=== PATIENT | female | born 1960 | race Caucasian/White ===

== ENCOUNTER → 2019-04-30 11:58 | Outpatient (CLI) | payer BC, SELFPAY ==
[2019-04-30 15:34] LABS: Hematocrit 52.6 % (37-47); Hemoglobin 17.3 g/dl (12.0-15.0); Mean Corp Hgb Conc 32.9 g/gl (32-36); Mean Corpuscular Hgb 29.2 pg (27.0-32.0); Mean Corpuscular Volume 88.9 fL (81-99); Mean Platelet Vol. 10.5 fl (6.2-12.0); Platelet Count 501 K/mm3 (150-450); RBC Distribution Width CV 13.9 % (11.6-14.6); Red Blood Count 5.92 M/mm3 (4.2-5.4); White Blood Count 12.6 K/mm3 (4.4-11.0)
[2019-04-30 15:45] LABS: Anion Gap 9 (5-15); BUN 18 mg/dL (7-18); BUN/Creat Ratio 18.8 RATIO (10-20); Calcium,Total 9.4 mg/dL (8.5-10.1); Chloride 100 mmol/L (98-107); Cholesterol 237 mg/dL (200); Creatinine, Serum 0.96 mg/dL (0.55-1.02); EST Glomerular Filtration Rate 63 mL/min (>60); Est Glom Filt Rate - Afr Amer 77 mL/min (>60); Glucose 87 mg/dL (74-106); High Density Lipoprotein 44 mg/dL; Potassium 3.7 mmol/L (3.5-5.1); Sodium Level 139 mmol/L (136-145); Triglycerides 191 mg/dL; Very Low Density Lipoprotein 38 mg/dL (5-40)
[2019-04-30 15:49] LABS: Scan Indicated on CBC? Y/N NO
[2019-04-30 15:55] LABS: Vitamin D,25 Hydroxy 18.6 ng/mL (29.95-100.01)
== END ==
PROVIDERS: Family Provider Family Medicine; PCP Family Medicine; Referring Provider Family Medicine; Visit Provider Family Medicine
DX: E55.9 Vitamin D deficiency, unspecified (principal); I10 Essential (primary) hypertension; F32.9 Major depressive disorder, single episode, unspecified
CPT/HCPCS: 36415; 80048; 80061; 82306; 85027

== ENCOUNTER → 2020-08-21 12:48 | Outpatient (CLI) | payer BC, SELFPAY ==
[2020-08-21 15:30] LABS: Vitamin D,25 Hydroxy 45.2 ng/mL
[2020-08-21 15:40] LABS: AST(SGOT) 41 U/L (15-37); Alanine Aminotransfer ALT/SGPT 80 U/L (13-56); Albumin, Serum 3.8 g/dL (3.2-5.0); Alkaline Phosphatase 90 U/L (45-117); Anion Gap 4 (5-15); BUN 28 mg/dL (7-18); BUN/Creat Ratio 30.1 RATIO (10-20); Calcium,Total 9.4 mg/dL (8.5-10.1); Chloride 100 mmol/L (98-107); Cholesterol 191 mg/dL (200); Creatinine, Serum 0.93 mg/dL (0.55-1.02); EST Glomerular Filtration Rate 65 mL/min (>60); Est Glom Filt Rate - Afr Amer 79 mL/min (>60); Glucose 84 mg/dL (74-106); High Density Lipoprotein 50 mg/dL; Potassium 4.1 mmol/L (3.5-5.1); Protein, Total 7.8 g/dL (6.4-8.2); Sodium Level 135 mmol/L (136-145); Thyroid Stim Hormone (TSH) 1.76 uIU/mL (0.358-3.74); Triglycerides 114 mg/dL; Very Low Density Lipoprotein 23 mg/dL (5-40)
== END ==
PROVIDERS: PCP Family Medicine; Referring Provider Family Medicine; Visit Provider Family Medicine
DX: E78.2 Mixed hyperlipidemia (principal); R63.4 Abnormal weight loss; E55.9 Vitamin D deficiency, unspecified
CPT/HCPCS: 36415; 80053; 80061; 82306; 84443

== ENCOUNTER 2022-01-23 14:18 | Observation (INO) | payer MEDICAID, SELFPAY ==
[2022-01-23] VITALS (7 sets, daily range): BP systolic 123–152; BP diastolic 66–98; PULSE 61–115; RESP 16–18; TEMP 36.3–36.8; O2SAT 96–100; BMI 29.2; BMI 28.6
--- NOTE | 2022-01-23 14:29 | EKG12_ITS ---
Test Reason : GI BLEED Blood Pressure : / mmHG Vent. Rate : 078 BPM Atrial Rate : 078 BPM P-R Int : 128 ms QRS Dur : 078 ms QT Int : 382 ms P-R-T Axes : 046 046 028 degrees QTc Int : 435 ms Normal sinus rhythm Normal ECG Confirmed by JARETT HANNAH, FERMIN ([id number]), editorial clerk ILA BEASLEY ([id number]) on 01/25/2022 11:05:41 AM Referred By: Confirmed By:FERMIN DENSON MD
--- NOTE | 2022-01-23 14:30 | ED.VIS.GI ---
HPI HPI - GI History of Present Illness Chief Complaint: GI Bleed Detail of Chief Complaint: Blood clots per rectum Informant: patient Abdominal Pain/Flank Pain Onset: Yesterday Context: Sudden Onset Timing: Intermittent Quality: - (No abdominal pain) Location: - (Not applicable) Current Severity: Not applicable Worsened by: Nothing Relieved by: Nothing Nausea/Vomiting/Emesis GI Symptom: Negative for Nausea and Vomiting Diarrhea/Melena/Hematochezia GI Symptom: Positive for Melena and Hematochezia Onset: Yesterday Stool Quality: Positive for Black, Maroon and BRB per rectum Associated Symptoms Associated Symptoms: Negative for Dysuria, Frequency and Hematuria LMP: Postmenopausal Narrative Narrative: Clots per rectum and started last evening. Now it is black to maroon in color. She is not on an anticoagulant. She denies bruising easily. Denies blood in her urine. Denies bleeding of her gums. Patient denies history of peptic ulcers. Patient has never had a colonoscopy.Patient is a 61-year-old woman who takes a baby aspirin a day presents because of blood clots per rectum. She denies abdominal pain. Denies nausea or vomiting. She denies history of peptic ulcer disease. She has never had a colonoscopy. She denies orthostatic symptoms. She states that her heart is pounding fast. Prior similar symptoms: No Recent Illness/Hospitalization: No PFSH PFSH Medical History (Updated 01/23/22 @ 15:[address] Cristi Bravo MD) HTN (hypertension) Allergy/AdvReac Type Severity Reaction Status Date / Time No Known Allergies Allergy Verified 01/23/22 14:20 Social History (Updated 01/23/22 @ 14:[address] Cristi Bravo MD) household members: none Smoking Status: Current every day smoker tobacco type: cigarettes substance use type: does not use ROS ROS ED Constitutional Constitutional ED: Denies chills, fever(s), subjective, sweats or weight loss ENT ENT ED: Denies ear pain, rhinorrhea or sore throat Cardiovascular Cardiovascular: Denies chest pain, orthopnea, palpitations or racing heartbeat Respiratory/Chest Respiratory/Chest: Denies cough, dyspnea, dyspnea on exertion or orthopnea Gastrointestinal Gastrointestinal: Reports melena; Denies abdominal pain, constipation, diarrhea, nausea or vomiting Genitourinary Genitourinary ED: Denies dysuria, hematuria or urinary frequency Musculoskeletal Musculoskeletal: Denies arthralgias, back pain, myalgias or neck pain Integumentary Denies rash Neurologic Neurologic: Denies headache(s), paresthesias or weakness Endocrine Endocrinology: Denies polydipsia, polyphagia or polyuria Hematologic/Lymphatic Hematologic/Lymphatic: Denies anemia, easy bleeding or easy bruising EXAM Physical Exam Const Vital Signs: 01/23/22 14:19 01/23/22 14:29 Temperature 97.4 F L 97.4 F L Temperature Source Temporal Temporal Pulse Rate 115 H 115 H Respiratory Rate 16 16 Blood Pressure 152/98 H 152/98 H Blood Pressure Mean 116 116 Pulse Ox 100 100 Oxygen Delivery Method Room Air Room Air Positive well nourished and well developed; Negative for obese, cachectic, contractures or unkempt General Appearance ED: well developed, NAD and pallor; Negative for unkempt, cachectic or contractures Nutritional Appearance: Negative for cachectic or obese HEENT Reports moist mucous membranes normocephalic and atraumatic Eyes PERRL and EOMs intact bilaterally General Eye ED: Yes pale conjunctiva; Negative for scleral icterus Neck no lymphadenopathy, supple and no JVD Resp normal respiratory effort and clear to auscultation bilaterally Cardio regular rhythm, S1 normal heart sound, S2 normal heart sound and no murmurs Rate: tachycardic GI non-tender, non-distended and no masses GI Narrative: There is no fissures, fistulas or hemorrhoids noted on rectal exam. Patient has maroon to black-colored stool. Auscultation: normoactive bowel sounds Palpation: soft Back/Spine no CVA tenderness Cervical Spine: Negative for cervical spine tenderness Thoracic Spine / Upper Back: Negative for thoracic spinal tenderness Lumbar Spine / Lower Back: Negative for lumbar spinal tenderness Extremity full ROM General Extremety ED: Negative for edema or tenderness General Extremity: Negative for edema Neuro CN's II-XII intact bilaterally and moves all extremities Sensorium / Orientation: alert, oriented to person, oriented to place and oriented to time Psych mental status grossly normal and thought process normal Appearance: Negative for unkempt Skin no wounds General Skin Exam: pallor; Negative for jaundice Lesions: no lesions Rashes: no rashes MDM MDM MDM Narrative Medical decision making narrative: Patient has a GI bleed. Suspect this is upper. Will treat with Protonix. Appropriate blood work was ordered including type and screen. Patient will require admission to the hospital. Lab Data Attestation: I reviewed the patient's lab results. Lab results narrative: H&H is within normal limits. Hemoglobin and hematocrit are lower than baseline by 3 to 4 g. We will compare to prior. BUN to creatinine ratio is elevated due to the GI bleed. Coags are. Patient's white count is elevated. This is nonspecific. She has had elevated white counts on all prior documented CBCs. Lactate is normal. Labs: Laboratory Results - last 24 hr 01/23/22 01/23/22 01/23/22 14:30 14:30 14:30 WBC 17.6 H RBC 4.77 Hgb 13.5 Hct 42.3 MCV 88.7 MCH 28.3 MCHC 31.9 L RDW Std Deviation 43.8 RDW Coeff of Yfn 13.5 Plt Count 683 H MPV 10.2 Immature Gran % (Auto) 0.700 Neut % (Auto) 69.9 Lymph % (Auto) 21.2 [place] % (Auto) 6.7 Eos % (Auto) 1.0 Baso % (Auto) 0.5 Absolute Neuts (auto) 12.3 H Absolute Lymphs (auto) 3.73 Nucleated RBC % 0 PT 13.6 INR 1.1 APTT 32.4 Sodium 135 L Potassium 4.2 Chloride 104 Carbon Dioxide 24.0 Anion Gap 7 BUN 51 H Creatinine 1.03 H Estim Creat Clear Calc 40.68 Est GFR (MDRD) Af Amer 70 Est GFR (MDRD) Non-Af 58 L BUN/Creatinine Ratio 49.5 H Glucose 113 H Lactic Acid Calcium 9.0 Total Bilirubin 0.60 AST 40 H ALT 26 Alkaline Phosphatase 72 Total Protein 7.0 Albumin 3.4 Globulin 3.6 Albumin/Globulin Ratio 0.9 Blood Type A1 Antigen Typing Rho(D) Type Antibody Screen 01/23/22 01/23/22 14:30 14:40 WBC RBC Hgb Hct MCV MCH MCHC RDW Std Deviation RDW Coeff of Yfn Plt Count MPV Immature Gran % (Auto) Neut % (Auto) Lymph % (Auto) [place] % (Auto) Eos % (Auto) Baso % (Auto) Absolute Neuts (auto) Absolute Lymphs (auto) Nucleated RBC % PT INR APTT Sodium Potassium Chloride Carbon Dioxide Anion Gap BUN Creatinine Estim Creat Clear Calc Est GFR (MDRD) Af Amer Est GFR (MDRD) Non-Af BUN/Creatinine Ratio Glucose Lactic Acid 1.4 Calcium Total Bilirubin AST ALT Alkaline Phosphatase Total Protein Albumin Globulin Albumin/Globulin Ratio Blood Type Cancelled A1 Antigen Typing Cancelled Rho(D) Type Cancelled Antibody Screen Cancelled EKG Initial EKG: Attestation: I personally reviewed and interpreted this EKG as follows: Interpretation: Sinus Rhythm (Sinus rhythm with ventricular rate of 78. TN interval is 128 ms. QRS duration 78 ms. QT duration 382 ms. [place] is normal. The EKG is normal.) Discharge Plan Dx/Rx/DC Orders Clinical Impression: Acute GI bleeding, Blood loss Disposition Disposition: Acute Care Hospital [facility]
[2022-01-23 14:42] LABS: Absolute Lymphocyte Count 3.73 X10^3/uL (0.83-4.51); Absolute Neutrophil Count 12.3 X10^3/uL (2.0-7.7); Basophil# 0.09 X10^3/uL; Basophil% 0.5 % (0-1); Eosinophil# 0.17 X10^3/uL; Hematocrit 42.3 % (37-47); Hemoglobin 13.5 g/dL (12.0-15.0); Lymphocyte # 3.73 X10^3/ul (0.83-4.51); Lymphocyte % 21.2 % (19-41); Mean Corp Hgb Conc 31.9 g/dL (32-36); Mean Corpuscular Hgb 28.3 pg (27.0-32.0); Mean Corpuscular Volume 88.7 fL (81-99); Mean Platelet Vol. 10.2 fl (6.2-12.0); Monocyte# 1.18 X10^3/uL; Monocyte% 6.7 % (0-10); NRBC Flagged by Analyzer 0 % (0-5); Neutrophil # 12.29 X10^3/uL (2.7-7.7); Neutrophil % 69.9 % (47-70); Platelet Count 683 K/mm3 (150-450); RBC Distribution Width CV 13.5 % (11.6-14.6); RBC Distribution Width SD 43.8 fl (35.1-43.9); Red Blood Count 4.77 M/mm3 (4.2-5.4); White Blood Count 17.6 K/mm3 (4.4-11.0)
[2022-01-23 14:55] LABS: International Normalized Ratio 1.1; Partial Thromboplast Time 32.4 Seconds (24.1-36.2); Prothrombin Time (Protime)PT. 13.6 SECONDS (11.7-14.9)
[2022-01-23 15:04] LABS: ALB/GLOB Ratio 0.9 RATIO (0.9-2.4); AST(SGOT) 40 U/L (15-37); Alanine Aminotransfer ALT/SGPT 26 U/L (13-56); Albumin, Serum 3.4 g/dL (3.2-5.0); Alkaline Phosphatase 72 U/L (45-117); Anion Gap 7 (5-15); BUN 51 mg/dL (7-18); BUN/Creat Ratio 49.5 RATIO (10-20); Chloride 104 mmol/L (98-107); Creatinine, Serum 1.03 mg/dL (0.55-1.02); EST Glomerular Filtration Rate 58 mL/min (>60); Est Glom Filt Rate - Afr Amer 70 mL/min (>60); Estimated Creatinine Clearance 40.68 ml/min; Globulin 3.6 g/dL (2.2-4.2); Glucose 113 mg/dL (74-106); Potassium 4.2 mmol/L (3.5-5.1); Sodium Level 135 mmol/L (136-145)
[2022-01-23 15:17] LABS: Lactic Acid 1.4 mmol/L (0.4-1.9)
[2022-01-23 15:37] LABS: Magnesium 1.7 mg/dL (1.6-2.6); Phosphorus 3.4 mg/dL (2.5-4.9)
--- NOTE | 2022-01-23 15:43 | PCM.HP.STD ---
[facility] - General General Date of Admission: 01/23/22 Date of Service: 01/23/22 Chief Complaint: Black stool 5 times. Mild lethargy. HPI Narrative JAY CALHOUN, is a 61 F with history of chronic back pain and degenerative arthritis came to ED for 5 episodes of black stool started last night. Her first bowel movement was large amount of black tar-like and then subsequent 4 others were small. She is feeling mild lethargic, slow but denies nausea, vomiting, dizziness or vertigo. She states that she feels her heartbeat, palpitation. In ED, she was tachycardic heart rate 115/min, BP 152/98 no tachypnea or hypoxia. She was reselected. Heart rate improved to 79/min. Denies history of coronary artery disease, NC, dysrhythmia, CHF or valvular heart disease or stroke. About 5 years ago, she felt mild weakness and giving out sensation of right leg and was started on some pill which she is not aware. She is taking baby aspirin for primary prevention. She has been taking occasional Aleve but since starting new job couple days ago she is taking Aleve 1 to 2 tablets daily. Labs done in the ER shows increase in BUN 51 and creatinine 1.03 from previous 28/0.93 on August 2020. Abnormal labs mentioning assessment and plan. [facility] Medical History HTN (hypertension) Allergy/AdvReac Type Severity Reaction Status Date / Time No Known Allergies Allergy Verified 01/23/22 14:20 Social History household members: none Smoking Status: Current every day smoker tobacco type: cigarettes substance use type: does not use ROS ROS Narrative Constitutional: Reports fatigue and weakness. Back pain HEENT: Reports systems reviewed and no addt'l complaints, except as documented Respiratory/Chest: No shortness of breath at rest or with exertion. Cardiovascular system:Denies chest pain, pressure or tightness. Mild sensation of racing of heart. peripheral arterial disease. She is not on aspirin for this reason but was started on some pill which she does not know. No home medication listed. Gastrointestinal: No abdominal pain or discomfort. Rest as mentioned in HPI Genitourinary: Denies burning urination or new urinary tract symptoms Musculoskeletal/back pain: Reports joint pain and limited range of motion at hip, knees and lumbar back pain Neurologic: Denies seizure-like activity skin: No ulcer. No rash Endocrinology: Reports systems reviewed and no addt'l complaints, except as documented Hematologic/Lymphatic: Reports systems reviewed and no addt'l complaints, except as documented Rest 14 ROS are negative except as mentioned in HPI Vital Signs Vital Signs Vital Signs: 01/23/22 14:19 01/23/22 14:29 01/23/22 15:24 Temperature 97.4 F L 97.4 F L 97.8 F Temperature Source Temporal Temporal Temporal Pulse Rate 115 H 115 H 79 Respiratory Rate 16 16 18 Blood Pressure 152/98 H 152/98 H 151/80 H Blood Pressure Mean 116 116 103 Pulse Ox 100 100 96 Oxygen Delivery Method Room Air Room Air Room Air Weight Weight: 150 lb Body Mass Index (BMI) 29.2 Physical Exam Narrative General: Mild lethargy oriented x3, Cooperative HEENT: Atraumatic, PERRLA, EOMI, Normocephalic Oral: Oral mucosa dry. No Gingival or Mucosal Lesions/ Ulcerations Neck: Supple, No JVD, Negative Carotid Bruits Lungs: Air entry diminished in bilateral lung bases. No crepitation/rhonchi Cardiovascular: Regular rate, Regular Rhythm, Normal S1, Normal S2, No murmurs. Popliteal, PT and DP are equal and symmetric on both lower extremities Abdomen: Bowel Sounds Present, Soft, Non Tender, Non-Distended : No renal angle tenderness. No suprapubic tenderness. Extremities: No edema, Capillary Refill Less than 3 Seconds Skin: No rashes, No breakdown Musculoskeletal/spine: Mild tenderness in the lumbar spine. No tenderness to Palpation of Joints or Extremities. ROM full. Neurological: Cranial nerves II-XII grossly intact, DTR 2+/4 and Symmetrical, Neuro grossly intact Psych/Mental Status: Flat affect Results Lab / Micro Data Result Diagrams: 01/23/22 14:30 01/23/22 14:30 Labs: Laboratory Results - last 24 hr 01/23/22 14:30: WBC 17.6 H, RBC 4.77, Hgb 13.5, Hct 42.3, MCV 88.7, MCH 28.3, MCHC 31.9 L, RDW Std Deviation 43.8, RDW Coeff of Yfn 13.5, Plt Count 683 H, MPV 10.2, Immature Gran % (Auto) 0.700, Neut % (Auto) 69.9, Lymph % (Auto) 21.2, [place] % (Auto) 6.7, Eos % (Auto) 1.0, Baso % (Auto) 0.5, Absolute Neuts (auto) 12.3 H, Absolute Lymphs (auto) 3.73, Nucleated RBC % 0 01/23/22 14:30: PT 13.6, INR 1.1, APTT 32.4 01/23/22 14:30: Sodium 135 L, Potassium 4.2, Chloride 104, Carbon Dioxide 24.0, Anion Gap 7, BUN 51 H, Creatinine 1.03 H, Estim Creat Clear Calc 40.68, Est GFR (MDRD) Af Amer 70, Est GFR (MDRD) Non-Af 58 L, BUN/Creatinine Ratio 49.5 H, Glucose 113 H, Calcium 9.0, Total Bilirubin 0.60, AST 40 H, ALT 26, Alkaline Phosphatase 72, Total Protein 7.0, Albumin 3.4, Globulin 3.6, Albumin/Globulin Ratio 0.9 01/23/22 14:30: Blood Type Cancelled, A1 Antigen Typing Cancelled, Rho(D) Type Cancelled, Antibody Screen Cancelled 01/23/22 14:30: Phosphorus 3.4, Magnesium 1.7 01/23/22 14:40: Lactic Acid 1.4 Assessment & Plan Assessment/Plan (1) Acute GI bleeding: PLAN: 1. Acute upper GI bleed most likely from NSAID: Patient is being admitted in PCU. Volume resuscitation. BP 151/80. Tachycardia resolved. Continue IV fluid normal saline. Type and crossmatch ordered by ER physician. I called Dr. Garrett discussed the clinical aspect and requested consult for EGD. IV Protonix 40 mg IV twice daily. Discontinue Aleve and hold baby aspirin. 2. Acute anemia mostly due to to blood loss/upper GI bleed: Her previous hemoglobin in April 2019 17.3 g/dL which is high. She denies history of COPD or any cancer or polycythemia vera. It was 16.5 grams per deciliter in October 2016. Monitor H&H in the evening. CBC daily. Patient not being admitted for 3. Hypertension: There is no medication or patient home med list. I think she not taking any medication. Monitor BP and start antihypertensive medication if BP is persistently high. IV hydralazine 10 mg every 6 hourly.. Blood pressure more than 180 mmHg 4. Peripheral arterial disease: Patient had noninvasive lower extremity arterial study ordered by Dr. Darling in March 2016. Reported as triphasic waveform at the ankle with resting CARLOS bilaterally normal. However following exercise left ankle pressure diminished failed to return to baseline even after 9 minutes post exercise. This is suggestive of left lower extremity arterial occlusive disease although the level of disease cannot be ascertained. Advised to follow-up with vascular surgeon as an outpatient. VTE prophylaxis: Pharmacological prophylaxis]. Bilateral SCDs. Living will/advanced directive/end of life care: Patient does not have living will or advanced directive. She did not have any designated power of corporate attorney for health but states her brother is next to kin. After discussion of benefits/risks procedures involved with full code, DNR CC arrest and DNR CC, the patient opted for full code. Patient does want artificial life support including intubation, tube feed, ventilator and/chest compression, central venous catheter, vasopressor and DC shock if needed Total time spent in [id number] encounter in discussion of advanced directive 16 minutes. Charges/Coding Visit Charges Inpatient E&M: 61717 Init Hosp L3 Procedures Hospitalists Procedures: 96044 Advncd Care Plan 30 Min
[2022-01-23] MEDS: 0.9% Normal Saline 1,000 ML 100 ML IV (16:11)
--- NOTE | 2022-01-23 23:00 | CON.PCM.GI_ITS ---
HPI Consult Data Date of Consult: 01/24/22 HPI Narrative HPI Narrative: JAY CALHOUN, is a 61 F who presents to the ED with melena and passing clots per rectum. She has never had a colonoscopy. She complains of 5 episodes of black stool started last night. Her first bowel movement was large amount of black tar-like and then subsequent 4 others were small. She denied any presyncope or syncope. She does take an aspirin on daily basis and takes occasional Aleve for arthritis pain. She has no history of CAD. She is never had a heart attack or stroke. She is not taking any blood thinners. Upon arrival she was tachycardic and hypertensive. He globin was noted to be 11.2 which is down from previous 15.2 and her BUN/creatinine ratio was weighted 51-1.03. I was consulted for management of GI bleed. All other 16 review of systems are negative except as pertinent positive mentioned HPI PFSH Medical History HTN (hypertension) Home Medications aspirin 81 mg PO/SL DAILY 01/23/22 [History Last Taken 01/23/22] atorvastatin 40 mg PO QHS 01/23/22 [History Last Taken 01/21/22] metoprolol tartrate 50 mg PO BID 01/23/22 [History Last Taken 01/22/22] naproxen sodium [Aleve] 220 mg PO Q8H PRN 01/23/22 [History Last Taken Unknown] Allergy/AdvReac Type Severity Reaction Status Date / Time No Known Allergies Allergy Verified 01/23/22 14:20 Social History (Updated 01/23/22 @ 16:07 by Leanna Abel) household members: none housing: house Smoking Status: Heavy Smoker (>10/day) substance use type: does not use ROS Gastrointestinal Gastrointestinal: Reports melena Physical Exam Const alert General Appearance: cooperative Orientation / Consciousness: oriented to person HEENT hearing grossly normal bilaterally Head and Scalp: normal to inspection Face and Sinus: face symmetric Nose: external nose normal Mouth: oral and palatal mucosa normal Eyes conjunctivae normal General Eye: normal appearance of both eyes Neck full ROM General: normal visual inspection Lymph Lymphatic: no lymphadenopathy noted Chest inspection of chest normal and palpation of chest normal Chest: symmetrical chest wall rise Resp normal respiratory effort Effort and Inspection: able to speak in complete sentences Cardio regular rate GI non-distended Percussion: normal to percussion Rectal Exam: deferred Neuro Speech: speech normal Gait (Neuro): normal gait Lab / Micro Data Result Diagrams: 01/24/22 05:29 01/24/22 05:29 Labs: Laboratory Results - last 24 hr 01/23/22 14:30: WBC 17.6 H, RBC 4.77, Hgb 13.5, Hct 42.3, MCV 88.7, MCH 28.3, MCHC 31.9 L, RDW Std Deviation 43.8, RDW Coeff of Yfn 13.5, Plt Count 683 H, MPV 10.2, Immature Gran % (Auto) 0.700, Neut % (Auto) 69.9, Lymph % (Auto) 21.2, [place] % (Auto) 6.7, Eos % (Auto) 1.0, Baso % (Auto) 0.5, Absolute Neuts (auto) 12.3 H, Absolute Lymphs (auto) 3.73, Nucleated RBC % 0 01/23/22 14:30: PT 13.6, INR 1.1, APTT 32.4 01/23/22 14:30: Sodium 135 L, Potassium 4.2, Chloride 104, Carbon Dioxide 24.0, Anion Gap 7, BUN 51 H, Creatinine 1.03 H, Estim Creat Clear Calc 40.68, Est GFR (MDRD) Af Amer 70, Est GFR (MDRD) Non-Af 58 L, BUN/Creatinine Ratio 49.5 H, Glucose 113 H, Calcium 9.0, Total Bilirubin 0.60, AST 40 H, ALT 26, Alkaline Phosphatase 72, Total Protein 7.0, Albumin 3.4, Globulin 3.6, Albumin/Globulin Ratio 0.9 01/23/22 14:30: Blood Type Cancelled, A1 Antigen Typing Cancelled, Rho(D) Type Cancelled, Antibody Screen Cancelled 01/23/22 14:30: Phosphorus 3.4, Magnesium 1.7 01/23/22 14:40: Lactic Acid 1.4 01/23/22 14:58: Blood Type A POSITIVE, Antibody Screen NEGATIVE 01/23/22 20:19: Hgb 11.5 L, Hct 34.6 L 01/24/22 05:29: WBC 11.2 H, RBC 3.83 L, Hgb 11.2 L, Hct 34.1 L, MCV 89.0, MCH 29.2, MCHC 32.8, RDW Std Deviation 43.2, RDW Coeff of Yfn 13.4, Plt Count 552 H, MPV 10.3, Immature Gran % (Auto) 0.600, Neut % (Auto) 62.6, Lymph % (Auto) 28.3, [place] % (Auto) 6.4, Eos % (Auto) 1.6, Baso % (Auto) 0.5, Absolute Neuts (auto) 7.0, Absolute Lymphs (auto) 3.16, Nucleated RBC % 0 01/24/22 05:29: Sodium 140, Potassium 3.6, Chloride 111 H, Carbon Dioxide 26.0, Anion Gap 3 L, BUN 33 H, Creatinine 0.78, Estim Creat Clear Calc 53.72, Est GFR (MDRD) Af Amer 95, Est GFR (MDRD) Non-Af 79, BUN/Creatinine Ratio 42.0 H, Glucose 83, Calcium 8.4 L Assessment & Plan Assessment/Plan (1) Acute GI bleeding: PLAN: The differential diagnosis for acute upper GI bleed in the setting of NSAIDs is peptic ulcer disease in the stomach or small bowel. With a elevated BUN/creatinine ratio greater than 2061 the likelihood of upper GI bleed in the setting of reactive thrombocytosis is about 95%. She should undergo an upper endoscopy evaluate her upper GI tract. She should also undergo screening colonoscopy. She was explained alternatives, risk, benefits including not withstanding bleeding, infection, sepsis, perforation, need for emergent surgery and . She will have an ASA of 1. (2) Leukocytosis: PLAN: Leukocytosis possibly reactive to acute GI bleed. However she s hould get an CT scan abdomen pelvis to make sure there is no sign of diverticular disease or ischemic colitis as it can have a similar presentation and you can have an elevated BUN/creatinine ratio if there is ischemia with GI blood loss on the right side of the colon due to the ADH receptors of the right side of the colon. (3) Thrombocytosis: PLAN: Suspect that this is reactive. Recommend to follow with further CBCs. If this continues to be elevated this would be another reason to encourage smoking cessation for the patient as it can increase her risk of thromboembolic event. Charges/Coding Visit Charges Inpatient E&M: 90382 Init Hosp L3
[2022-01-24] VITALS (9 sets, daily range): BP systolic 84–132; BP diastolic 45–68; PULSE 61–75; RESP 16–20; TEMP 36–36.8; O2SAT 95–98; BMI 28.6
[2022-01-24 01:28] LABS: Hematocrit 34.6 % (37-47); Hemoglobin 11.5 g/dL (12.0-15.0)
[2022-01-24] MEDS: 0.9% Normal Saline 1,000 ML 100 ML IV (03:09)
[2022-01-24 06:27] LABS: Absolute Lymphocyte Count 3.16 X10^3/uL (0.83-4.51); Basophil# 0.06 X10^3/uL; Basophil% 0.5 % (0-1); Eosinophil# 0.18 X10^3/uL; Eosinophils% 1.6 % (0-5); Hematocrit 34.1 % (37-47); Hemoglobin 11.2 g/dL (12.0-15.0); Lymphocyte # 3.16 X10^3/ul (0.83-4.51); Lymphocyte % 28.3 % (19-41); Mean Corp Hgb Conc 32.8 g/dL (32-36); Mean Corpuscular Hgb 29.2 pg (27.0-32.0); Mean Platelet Vol. 10.3 fl (6.2-12.0); Monocyte# 0.71 X10^3/uL; Monocyte% 6.4 % (0-10); NRBC Flagged by Analyzer 0 % (0-5); Neutrophil # 6.99 X10^3/uL (2.7-7.7); Neutrophil % 62.6 % (47-70); Platelet Count 552 K/mm3 (150-450); RBC Distribution Width CV 13.4 % (11.6-14.6); RBC Distribution Width SD 43.2 fl (35.1-43.9); Red Blood Count 3.83 M/mm3 (4.2-5.4); White Blood Count 11.2 K/mm3 (4.4-11.0)
[2022-01-24 06:51] LABS: Anion Gap 3 (5-15); BUN 33 mg/dL (7-18); Calcium,Total 8.4 mg/dL (8.5-10.1); Chloride 111 mmol/L (98-107); Creatinine, Serum 0.78 mg/dL (0.55-1.02); EST Glomerular Filtration Rate 79 mL/min (>60); Est Glom Filt Rate - Afr Amer 95 mL/min (>60); Estimated Creatinine Clearance 53.72 ml/min; Glucose 83 mg/dL (74-106); Potassium 3.6 mmol/L (3.5-5.1); Sodium Level 140 mmol/L (136-145)
--- NOTE | 2022-01-24 07:37 | NURSING ---
Surgery RN called for report on pt, states pt is going to have EGD at 0800.
--- NOTE | 2022-01-24 08:05 | EGD_PTH ---
PATIENT: HILARIO CALHOUN LOC: [facility] U#:[id number] AGE/SX: 61/F ROOM: [facility] RE01/23/[address]: Dr. Lakhwinder Fabian MD : 1960 BED: 1 DIS: 01/24/2022 SPEC #: [id number] RECD: 01/24/22 08:40 STATUS: LEXII REQ #: [id number] JUAN DAVID: 01/24/22 08:[address]: Amol Garrett DEPT: SURGICAL PATHOLOGY RECD BY: Mireille Johnson ENTERED: 01/25/22 08:29 SP TYPE: EGD BIOPSY OTHR DR: MD Dr. Lakhwinder Colunga MD Tissues: Duodenum, NOS Procedures: Surgery Specimen Level IV Comments: @ Ordering doctor for SUIV edited from to @ by RGOOD at 01/25/221431 @ Submitting doctor edited from to @ by RGOOD at 01/25/221431 HEADER OPERATION: [place] with [place] PRE-OP DIAGNOSIS: GI bleed TISSUE SUBMITTED: Duodenal ulcer MICROSCOPIC DIAGNOSIS Duodenal ulcer, biopsy: Mild glandular distortion with mild chronic inflammation. AM:lolita 01/26/2022 MICROSCOPIC DESCRIPTION Slides are reviewed. GROSS DESCRIPTION Received in fixative is one container labeled with the patient's name and designated duodenal ulcer. The specimen consists of two irregular fragments of light trejo soft tissue that in aggregate measure 0.6 x 0.3 x 0.1 cm. The specimen is totally submitted in one cassette. / SJ:lolita 01/25/2022 TC:3 CPT: 55586
--- NOTE | 2022-01-24 08:51 | OP.CCLET_ITS ---
08/11/2022 Rohit Venegas [address] [place] [address] Re : Upper GI endoscopy procedure for Karli Elise Dear Dr. Venegas This procedure was performed on Monday, January 24, 2022. My impressions and recommendations are as follows: Impressions : - Normal esophagus. - Non-bleeding gastric ulcer with no stigmata of bleeding. - Multiple oozing duodenal ulcers with no stigmata of bleeding. Treated with a heater probe. - One non-bleeding duodenal ulcer with no stigmata of bleeding. Biopsied. Recommendations : - [facility]. - Resume previous diet. - Use Protonix (pantoprazole) 40 mg PO BID for 4 weeks. - No aspirin, ibuprofen, naproxen, or other non-steroidal anti-inflammatory drugs for 7 days. My findings are described in the full procedure note, which is enclosed. If I can be of further assistance, please feel free to contact me at . Sincerely, Amol Garrett, 01/24/2022 8:50:41 AM This report has been signed electronically.
--- NOTE | 2022-01-24 08:51 | OP.EGD_ITS ---
Patient Name: Karli Olivares Procedure Date: 01/24/2022 7:31 AM Date of : 1960 Age: 61 Procedure: Upper GI endoscopy Indications: Melena Providers: Amol Garrett DO Medicines: See the Anesthesia note for documentation of the administered medications Patient Profile: This is a 61 year old female. Refer to note in patient chart for documentation of history and physical. Patient has symptoms. Complications: No immediate complications. Procedure: Pre-Anesthesia Assessment: - Prior to the procedure, a History and Physical was performed, and patient medications and allergies were reviewed. The patient is competent. The risks and benefits of the procedure and the sedation options and risks were discussed with the patient. All questions were answered and informed consent was obtained. Patient identification and proposed procedure were verified by the physician in the pre-procedure area. Mental Status Examination: alert and oriented. Airway Examination: normal oropharyngeal airway and neck mobility. Respiratory Examination: clear to auscultation. CV Examination: normal. Prophylactic Antibiotics: The patient does not require prophylactic antibiotics. Prior Anticoagulants: The patient has taken no previous anticoagulant or antiplatelet agents. ASA Grade Assessment: II - A patient with mild systemic disease. After reviewing the risks and benefits, the patient was deemed in satisfactory condition to undergo the procedure. The anesthesia plan was to use moderate sedation / analgesia (conscious sedation). Immediately prior to administration of medications, the patient was re-assessed for adequacy to receive sedatives. The heart rate, respiratory rate, oxygen saturations, blood pressure, adequacy of pulmonary ventilation, and response to care were monitored throughout the procedure. The physical status of the patient was re-assessed after the procedure. After obtaining informed consent, the endoscope was passed under direct vision. Throughout the procedure, the patient's blood pressure, pulse, and oxygen saturations were monitored continuously. The Endoscope was introduced through the mouth, and advanced to the second part of duodenum. The upper GI endoscopy was accomplished without difficulty. The patient tolerated the procedure well. Moderate Sedation: Moderate (conscious) sedation was administered by the endoscopy nurse and supervised by the endoscopist. The following parameters were monitored: oxygen saturation, heart rate, blood pressure, and response to care. Total physician intraservice time was 15 minutes. Scope In: 8:23:29 AM Scope Out: 8:28:33 AM Total Procedure Duration Time 0 hours 5 minutes 4 seconds Findings: The examined esophagus was normal. One non-bleeding linear gastric ulcer with no stigmata of bleeding was found in the gastric body. The lesion was 6 mm in largest dimension. Two oozing cratered duodenal ulcers with no stigmata of bleeding were found in the first portion of the duodenum. The largest lesion was 6 mm in largest dimension. Coagulation for bleeding prevention using heater probe was successful. One non-bleeding cratered duodenal ulcer with no stigmata of bleeding was found in the duodenal bulb. The lesion was 6 mm in largest dimension. Biopsies were taken with a cold forceps for histology. Verification of patient identification for the specimen was done. Estimated blood loss was minimal. Impression: - Normal esophagus. - Non-bleeding gastric ulcer with no stigmata of bleeding. - Multiple oozing duodenal ulcers with no stigmata of bleeding. Treated with a heater probe. - One non-bleeding duodenal ulcer with no stigmata of bleeding. Biopsied. Recommendation: - [facility]. - Resume previous diet. - Use Protonix (pantoprazole) 40 mg PO BID for 4 weeks. - No aspirin, ibuprofen, naproxen, or other non-steroidal anti-inflammatory drugs for 7 days. Procedure Code(s): --- Professional --- 56495, 59, Esophagogastroduodenoscopy, flexible, transoral; with control of bleeding, any method 03863, Esophagogastroduodenoscopy, flexible, transoral; with biopsy, single or multiple 41920, 59, Moderate sedation services provided by the same physician or other qualified health doggy daycare activities director performing the diagnostic or therapeutic service that the sedation supports, requiring the presence of an independent trained observer to assist in the monitoring of the patient's level of consciousness and physiological status; initial 15 minutes of intraservice time, patient age 5 years or older CPT copyright 2017 [employer]. All rights reserved. The codes documented in this report are preliminary and upon primary grade teacher review may be revised to meet current compliance requirements. Amol Garrett DO 01/24/2022 8:50:41 AM This report has been signed electronically. Number of Addenda: 1 Note Initiated On: 01/24/2022 7:31 AM Addendum Number: 1 Addendum Date: 08/11/2022 6:32:11 AM MAC was used as sedation for this procedure. Amol Garrett DO 08/11/2022 6:32:15 AM This report has been signed electronically.
[2022-01-24] MEDS: Potassium Chloride 10mEq/100mL 10 MEQ/100 ML IV.SOLN. 100 MEQ IV BOLUS ×2 (10:04→11:38)
--- NOTE | 2022-01-24 11:00 | PCM.DC ---
Discharge Instructions Diet Discharge Diet: No restrictions Dressing / Incision Call your doctor if you observe: Fever of 101 or Higher, Coldness, Increased Pain, Numbness or Tingling, Change in Color, Inability to urinate, Inability to have a bowel movement, Shortness of breath, Dizziness, Fainting spells, Swelling in the ankles, Chest pain, Prolonged hiccupping, Increased palpitations (irregular heartbeat), Calf discomfort and Uncontrolled pain Follow Up Care Test Results: Test results from this visit will be discussed in further detail at your follow-up appointment, if applicable. Discharge Plan Admission Admit Date/Time: 01/23/22 15:17 Primary Reason for Your Visit: Upper GI bleed Attending Provider: Lakhwinder Fabian Primary Care Provider: Rohit Venegas Discharge Orders/Prescriptions Prescriptions: New sennosides-docusate sodium [Stool Softener-Stimulant Laxat] 8.6-50 mg Tablet 2 tab PO BID PRN PRN (Reason: Constipation) Qty: 0 RF: 0 pantoprazole [Protonix] 40 mg tablet,delayed release (DR/EC) 40 mg PO BID Qty: 60 RF: 1 Continued atorvastatin 40 mg tablet 40 mg PO QHS RF: 0 metoprolol tartrate 50 mg tablet 50 mg PO BID RF: 0 Discontinued naproxen sodium [Aleve] 220 mg Tablet 220 mg PO Q8H PRN (Reason: Pain) RF: 0 aspirin 81 mg PO/SL DAILY RF: 0 Referrals / Follow Up: Rohit Venegas MD [Primary Care Provider] - Within 1 Week (For upper GI bleed) Amol Garrett DO [STAFF PHYSICIAN] - Within 2 Weeks (Follow tongue EGD biopsy) Disposition Disposition (needs filled in before D/C Order can be placed): Home, Self Care
--- NOTE | 2022-01-24 11:10 | CT_ITS ---
HISTORY: GI bleed, suspicion of right colonic ischemic colitis or diverticulosis TECHNIQUE: Helically acquired images were obtained of the abdomen and pelvis following IV contrast. No oral contrast was administered. 2-D/3-D CTA protocol was utilized. A radiation dose optimization technique was used for this scan. IV Contrast dosage and agent: 100 mL Isovue-370. 560 images. COMPARISON: None. FINDINGS: AORTA: No aneurysm or dissection flap. Mild calcified and noncalcified plaque with mild mural thrombus. No high-grade stenosis. CELIAC ARTERY: Patent with mild narrowing at the origin. SUPERIOR MESENTERIC ARTERY: Patent. RENAL ARTERIES: Greater than 50% stenosis at the origin of the right renal artery. Small accessory right renal artery Patent single left renal artery. ILIAC ARTERIES: Calcified plaque and mural thrombus in the left common iliac artery with greater than 80% stenosis. Mild atherosclerosis on the right. LOWER CHEST: Minimal lower lobe atelectasis. BOWEL: Bowel including appendix nondilated. No pneumatosis intestinalis. Sigmoid diverticulosis without pericolonic inflammation. PERITONEUM: No free air or significant ascites. LIVER/SPLEEN/PANCREAS: No enhancing masses. GALLBLADDER: Gallbladder present. KIDNEYS/ADRENAL GLANDS: No focal lesion. PELVIC ORGANS: Unremarkable. ABDOMINAL WALL: Tiny fat-containing umbilical hernia. BONES: Degenerative change. Mild scoliosis. 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 Moderate stenosis at the origin of the right renal artery. Colonic diverticulosis evidence for acute diverticulitis. Individualized dose optimization techniques were used for this CT. at 1307 Reported and signed by: Iris Chung MD Electronically Signed: Iris Chung MD at 13:06 EDT ,
[2022-01-24] MEDS: 0.9% Normal Saline 1,000 ML 75 ML IV (12:28)
--- NOTE | 2022-01-24 13:25 | PCM.DC.SUM ---
Providers Date of Admission: 01/23/22 Date of Discharge: 01/24/22 Primary Care Physician: Dr. Rohit Venegas MD Consultations 01/23/22 16:05 Consult: Gastroenterology Routine Consulting Provider: [facility] Reason for Consult: Acute upper gi bleed EMERGENT Consult: No MD Notified: Yes Date Notified: 01/23/22 Time Notified: 16:06 Method of Notification: Text Reason For Visit: UPPER GI BLEED Diagnosis Discharge Diagnosis (1) Acute GI bleeding: Status: Acute Code(s): K92.2 - Gastrointestinal hemorrhage, unspecified (2) Leukocytosis: Status: Acute Code(s): D72.829 - Elevated white blood cell count, unspecified (3) Thrombocytosis: Status: Acute Code(s): D75.839 - Thrombocytosis, unspecified Medications at Discharge Home Medications atorvastatin 40 mg PO QHS 01/23/22 metoprolol tartrate 50 mg PO BID 01/23/22 aspirin 81 mg PO DAILY #30 tab 01/24/22 pantoprazole [Protonix] 40 mg PO BID #60 tab 01/24/22 sennosides-docusate sodium [Stool Softener-Stimulant Laxat] 2 tab PO BID PRN PRN #0 tab 01/24/22 Hospital Course Summary of Care Provided Hospital Course: JAY CALHOUN, is a 61 F with history of chronic back pain and degenerative arthritis was admitted in PCU through ED for 5 episodes of black stool started night before admission. Her first bowel movement was large amount of black tar-like and then subsequent 4 others were small. She was feeling mild lethargic, slow but denies nausea, vomiting, dizziness or vertigo. She felt palpitation Her further hospital course, evaluation, assessment and management plan as follows 1. Acute upper GI bleed most likely from NSAID: Patient is being admitted in PCU. Volume resuscitation. BP 151/80. Tachycardia resolved. Continue IV fluid normal saline. IV Protonix 80 mg bolus and then 40 g IV twice daily started. Type and crossmatch ordered by ER physician. The natural gas treating unit operator was consulted. On 01/24 EGD was done. EGD shows nonbleeding gastric ulcer with no stigmata of bleeding, multiple oozing duodenal ulcers treated with heater probe and one nonbleeding duodenal ulcer. I discussed with Dr. Garrett about the EGD findings. He advised CT abdomen pelvis to rule out diverticular disease or ischemic colitis as it has similar presentation with elevated BUN/creatinine ratio especially with right colonic ischemia. CTA abdomen pelvis with IV contrast ordered to rule out ischemic colitis. Continue IV fluid for 4 hours post contrast. No aspirin ibuprofen naproxen or other NSAIDs for at least [address] angiogram which showed colonic diverticulosis but no inflammation. Additional findings were severe stenosis of left common iliac artery and moderate stenosis at the origin of right renal artery. Patient advised to resume baby aspirin on 01/31/2022 AFTER 7 days. Patient will remain on twice daily PPI for 4 weeks and then once daily. Follow-up with vascular surgeon Dr. Rubio within [address] Garrett in 2 weeks. 2. Acute anemia mostly due to to blood loss/upper GI bleed on baseline history of MGUS: Her previous hemoglobin in April 2019 17.3 g/dL which is high. She denies history of COPD or any cancer or polycythemia vera. It was 16.5 grams per deciliter in October 2016. Monitor H&H in the evening. Follow-up CBC shows hemoglobin 11.5 g, 11.2 g%. Mild drop from 13.5 g%. Patient has leukocytosis in 2015 and 2018, high hematocrit and thrombocytosis which I think chronic and points to possible MGUS/plasma cell disorder. Follow-up instrumentation and controls technician to be referred by PCP. 3. Hypertension: There is no medication or patient home med list. I think she not taking any medication. Monitor BP and start antihypertensive medication if BP is persistently high. IV hydralazine 10 mg every 6 hourly.. Blood pressure more than 180 mmHg 4. Peripheral arterial disease: Patient had noninvasive lower extremity arterial study ordered by Dr. Darling in March 2016. Reported as triphasic waveform at the ankle with resting CARLOS bilaterally normal. However following exercise left ankle pressure diminished failed to return to baseline even after 9 minutes post exercise. This is suggestive of left lower extremity arterial occlusive disease although the level of disease cannot be ascertained. Advised to follow-up with vascular surgeon as an outpatient. VTE prophylaxis: Pharmacological prophylaxis]. Bilateral SCDs Discharge medication reconciliation done. Discharge follow-up instructions completed. Discharge process discussed with the patient and all questions were answered to patient's satisfaction. Prescription sent to the patient's pharmacy. Follow-up to the physician communicated to the patient. Total time spent, exact 35 minutes on discharge meds reconciliation, examination, coordination of care with nurses and ancillary staff, review of imaging and blood test and discussion with the patient on follow-up instructions. Physical Exam Narrative Seen and examined. Patient denies abdominal pain. No nausea or vomiting. Tolerating clear liquid diet well. No further GI bleeding. No tachycardia or hypotension General: Alert oriented x3. HEENT: Atraumatic, PERRLA, EOMI, Normocephalic Oral: Oral mucosa dry. No Gingival or Mucosal Lesions/ Ulcerations Neck: Supple, No JVD, Negative Carotid Bruits Lungs: Air entry diminished in bilateral lung bases. No crepitation/rhonchi Cardiovascular: Regular rate, Regular Rhythm, Normal S1, Normal S2, No murmurs. Popliteal, PT and DP are equal and symmetric on both lower extremities Abdomen: Bowel Sounds Present, Soft, Non Tender, Non-Distended : No renal angle tenderness. No suprapubic tenderness. Extremities: No edema, Capillary Refill Less than 3 Seconds Skin: No rashes, No breakdown Musculoskeletal/spine: Mild tenderness in the lumbar spine. No tenderness to Palpation of Joints or Extremities. ROM full. Neurological: Cranial nerves II-XII grossly intact, DTR 2+/4 and Symmetrical, Neuro grossly intact Psych/Mental Status: Flat affect Weight / BMI Weight Weight: 146 lb 13.246 oz Body Mass Index (BMI) 28.6 ABG / Lab / Microbiology Data Result Diagrams: 01/24/22 05:29 01/24/22 05:29 Laboratory: Laboratory Results - last 24 hr 01/23/22 14:30: WBC 17.6 H, RBC 4.77, Hgb 13.5, Hct 42.3, MCV 88.7, MCH 28.3, MCHC 31.9 L, RDW Std Deviation 43.8, RDW Coeff of Yfn 13.5, Plt Count 683 H, MPV 10.2, Immature Gran % (Auto) 0.700, Neut % (Auto) 69.9, Lymph % (Auto) 21.2, Centre % (Auto) 6.7, Eos % (Auto) 1.0, Baso % (Auto) 0.5, Absolute Neuts (auto) 12.3 H, Absolute Lymphs (auto) 3.73, Nucleated RBC % 0 01/23/22 14:30: PT 13.6, INR 1.1, APTT 32.4 01/23/22 14:30: Sodium 135 L, Potassium 4.2, Chloride 104, Carbon Dioxide 24.0, Anion Gap 7, BUN 51 H, Creatinine 1.03 H, Estim Creat Clear Calc 40.68, Est GFR (MDRD) Af Amer 70, Est GFR (MDRD) Non-Af 58 L, BUN/Creatinine Ratio 49.5 H, Glucose 113 H, Calcium 9.0, Total Bilirubin 0.60, AST 40 H, ALT 26, Alkaline Phosphatase 72, Total Protein 7.0, Albumin 3.4, Globulin 3.6, Albumin/Globulin Ratio 0.9 01/23/22 14:30: Blood Type Cancelled, A1 Antigen Typing Cancelled, Rho(D) Type Cancelled, Antibody Screen Cancelled 01/23/22 14:30: Phosphorus 3.4, Magnesium 1.7 01/23/22 14:40: Lactic Acid 1.4 01/23/22 14:58: Blood Type A POSITIVE, Antibody Screen NEGATIVE 01/23/22 20:19: Hgb 11.5 L, Hct 34.6 L 01/24/22 05:29: WBC 11.2 H, RBC 3.83 L, Hgb 11.2 L, Hct 34.1 L, MCV 89.0, MCH 29.2, MCHC 32.8, RDW Std Deviation 43.2, RDW Coeff of Yfn 13.4, Plt Count 552 H, MPV 10.3, Immature Gran % (Auto) 0.600, Neut % (Auto) 62.6, Lymph % (Auto) 28.3, Centre % (Auto) 6.4, Eos % (Auto) 1.6, Baso % (Auto) 0.5, Absolute Neuts (auto) 7.0, Absolute Lymphs (auto) 3.16, Nucleated RBC % 0 01/24/22 05:29: Sodium 140, Potassium 3.6, Chloride 111 H, Carbon Dioxide 26.0, Anion Gap 3 L, BUN 33 H, Creatinine 0.78, Estim Creat Clear Calc 53.72, Est GFR (MDRD) Af Amer 95, Est GFR (MDRD) Non-Af 79, BUN/Creatinine Ratio 42.0 H, Glucose 83, Calcium 8.4 L Meaningful Use Info Meaningful Use Diagnoses (Choose all that apply): None applicable Discharge Plan Admission Admit Date/Time: 01/23/22 15:17 Primary Reason for Your Visit: Upper GI bleed Attending Provider: Lakhwinder Fabian Primary Care Provider: Rohit Venegas Instructions Additional Instructions / Restrictions: Start baby aspirin, enteric-coated on 01/31/2022 as patient has severe restenosis of left common iliac artery and moderate stenosis at origin of right renal artery. Patient on PPI. Follow-up vascular surgeon Dr. Rubio. Discharge Orders/Prescriptions Prescriptions: New sennosides-docusate sodium [Stool Softener-Stimulant Laxat] 8.6-50 mg Tablet 2 tab PO BID PRN PRN (Reason: Constipation) Qty: 0 RF: 0 pantoprazole [Protonix] 40 mg tablet,delayed release (DR/EC) 40 mg PO BID Qty: 60 RF: 1 aspirin 81 mg tablet,delayed release (DR/EC) 81 mg PO DAILY Qty: 30 RF: 0 Continued atorvastatin 40 mg tablet 40 mg PO QHS RF: 0 metoprolol tartrate 50 mg tablet 50 mg PO BID RF: 0 Discontinued naproxen sodium [Aleve] 220 mg Tablet 220 mg PO Q8H PRN (Reason: Pain) RF: 0 aspirin 81 mg PO/SL DAILY RF: 0 Referrals / Follow Up: Tray Rubio MD [STAFF PHYSICIAN] - Within 1 Month (FOR severe stenosis of left, iliac artery and moderate stenosis at the origin of right tibial artery.) Rohit Venegas MD [Primary Care Provider] - Within 1 Week (For upper GI bleed) Amol Garrett DO [STAFF PHYSICIAN] - Within 2 Weeks (Follow tongue EGD biopsy) Disposition Disposition (needs filled in before D/C Order can be placed): Home, Self Care
== END 2022-01-24 14:15 | disposition home or self-care (01) ==
LOC: ED 15:23 → PCU 17:37
PROVIDERS: Internal Medicine Gastroenterology; Admitting Provider Internal Medicine; Emergency Provider Emergency Medicine; PCP Family Medicine; Visit Provider Internal Medicine
PROC: 0DJ08ZZ Inspection of Upper Intestinal Tract, Via Natural or Artificial Opening Endoscopic (ICD-10-PCS; CPT 43235; principal; 2022-01-24 08:00)
DX: K26.4 Chronic or unspecified duodenal ulcer with hemorrhage (principal); I73.9 Peripheral vascular disease, unspecified; I77.1 Stricture of artery; K57.32 Diverticulitis of large intestine without perforation or abscess without bleeding; D62 Acute posthemorrhagic anemia; D75.839 Thrombocytosis, unspecified; M19.90 Unspecified osteoarthritis, unspecified site; F17.210 Nicotine dependence, cigarettes, uncomplicated; I10 Essential (primary) hypertension; Z79.82 Long term (current) use of aspirin; D72.829 Elevated white blood cell count, unspecified; K25.4 Chronic or unspecified gastric ulcer with hemorrhage; Z79.899 Other long term (current) drug therapy; Z86.2 Personal history of diseases of the blood and blood-forming organs and certain disorders involving the immune mechanism
CPT/HCPCS: 43255; 43239; G0378 ×2; G0463; 36415; 74174; 80048; 80053; 83605; 83735; 84100; 85014; 85018; 85025; 85610; 85730; 86850; 86900; 86901; 88305; 93005; 96361; 96365; 96366; 96367; 96376; 99221; 99251; 99284; 99406; Q9967; A4216; J2405

== ENCOUNTER 2022-04-08 10:52 | Outpatient (CLI) | payer MEDICAID, SELFPAY ==
[2022-04-08 11:54] LABS: Absolute Lymphocyte Count 2.84 X10^3/uL (0.83-4.51); Absolute Neutrophil Count 9.8 X10^3/uL (2.0-7.7); Basophil# 0.11 X10^3/uL; Basophil% 0.8 % (0-1); Eosinophil# 0.32 X10^3/uL; Eosinophils% 2.3 % (0-5); Hematocrit 49.7 % (37-47); Hemoglobin 15.5 g/dL (12.0-15.0); Lymphocyte # 2.84 X10^3/ul (0.83-4.51); Lymphocyte % 20.2 % (19-41); Mean Corp Hgb Conc 31.2 g/dL (32-36); Mean Corpuscular Hgb 25.2 pg (27.0-32.0); Mean Corpuscular Volume 80.8 fL (81-99); Monocyte# 0.97 X10^3/uL; Monocyte% 6.9 % (0-10); NRBC Flagged by Analyzer 0 % (0-5); Neutrophil # 9.76 X10^3/uL (2.7-7.7); Neutrophil % 69.2 % (47-70); Platelet Count 734 K/mm3 (150-450); RBC Distribution Width CV 13.9 % (11.6-14.6); RBC Distribution Width SD 40.6 fl (35.1-43.9); Red Blood Count 6.15 M/mm3 (4.2-5.4); White Blood Count 14.1 K/mm3 (4.4-11.0)
[2022-04-08 12:24] LABS: ALB/GLOB Ratio 0.9 RATIO (0.9-2.4); AST(SGOT) 24 U/L (15-37); Alanine Aminotransfer ALT/SGPT 30 U/L (13-56); Albumin, Serum 3.5 g/dL (3.2-5.0); Alkaline Phosphatase 112 U/L (45-117); Anion Gap 7 (5-15); BUN 19 mg/dL (7-18); BUN/Creat Ratio 21.6 RATIO (10-20); Calcium,Total 9.2 mg/dL (8.5-10.1); Chloride 108 mmol/L (98-107); Cholesterol 151 mg/dL (200); Creatinine, Serum 0.88 mg/dL (0.55-1.02); EST Glomerular Filtration Rate 69 mL/min (>60); Est Glom Filt Rate - Afr Amer 84 mL/min (>60); Glucose 108 mg/dL (74-106); High Density Lipoprotein 43 mg/dL; Potassium 3.9 mmol/L (3.5-5.1); Protein, Total 7.5 g/dL (6.4-8.2); Sodium Level 139 mmol/L (136-145); Triglycerides 120 mg/dL; Very Low Density Lipoprotein 24 mg/dL (5-40)
== END 2022-04-08 23:59 | disposition home or self-care (01) ==
LOC: MFPLAB 10:53
PROVIDERS: PCP Family Medicine; Referring Provider Family Medicine; Visit Provider Family Medicine
DX: I73.9 Peripheral vascular disease, unspecified (principal); I10 Essential (primary) hypertension
CPT/HCPCS: 36415; 80053; 80061; 85025

== ENCOUNTER → 2022-06-01 | Outpatient (CLI) | payer MEDICAID, SELFPAY ==
--- NOTE | 2022-06-01 11:53 | BI_ITS ---
MAMMOGRAPHY - BILATERAL SCREENING REASON FOR EXAM: Female, 61 years old. Routine annual screening examination. PERTINENT HISTORY: Mother with breast cancer. TECHNIQUE: Digital bilateral breast fredi (3D mammographic acquisition) in the CC and MLO projections. 2-D mediolateral oblique (MLO) and craniocaudad (CC) views of both breasts were obtained. CAD: Full Field Digital Mammography with Computer Added Detection was performed. COMPARISON: None. Baseline examination. FINDINGS: Breast Composition: There are scattered areas of fibroglandular density. There are no dominant masses or suspicious calcifications. Small benign-appearing bilateral axillary lymph nodes. No other significant abnormalities are identified. BI/SCRN MAMM (CAD)W/FREDI BILAT IMPRESSION: Negative screening mammogram. Yearly followup mammogram recommended. (A) ASSESSMENT CATEGORY: BIRADS Category 2: Benign. A letter regarding these results will be sent to the patient by the facility within 30 days. Approximately 10% of breast cancers are not detected by mammography. A normal mammogram should not delay biopsy of a clinically suspicious abnormality. [id number] Electronically Signed: Carlos Soriano MD at 12:42 EDT ,
--- NOTE | 2022-06-01 12:58 | CT_ITS ---
STUDY: LOW DOSE CT LUNG CANCER SCREENING REASON FOR EXAM: Female, 61 years old. Lung cancer screening -- 44 pk yr hx; current smoker; asymptomatic RADIATION DOSAGE (If Supplied By Facility): CTDIvol = ( 3.02 ) mGy, DLP = ( 100.05 ) mGycm TECHNIQUE: No contrast was administered. Low dose technique was utilized (average mAS-38 and kVp 120). 1.25 mm axial source images with a slice interval of 1.25-mm were reconstructed in lung windows. 2.5 mm axial source images with a slice interval of 2.5-mm were reconstructed in lung windows. 5.0 mm axial source images with a slice interval of 5.0-mm were reconstructed in soft tissue windows. COMPARISON: None. NODULES: No suspicious nodules are seen. Emphysema: No significant emphysematous changes. Endobronchial lesion: None Aorta: Mild degree of atherosclerotic plaque formation. CORONARY ARTERIES: Coronary artery calcification is not seen. Heart: Unremarkable Pulmonary artery: Unremarkable Mediastinal nodes: Small mediastinal lymph nodes Other chest and abdominal findings: CT/Low Dose CT Lung Screening IMPRESSION: Lung-RADS category 2 - Continue annual screening with LDCT in 12 months. IMPORTANT NOTES FOR USE: ACR Lung-RADS Version 1.1 Assessment Categories Release Date: 2018 Category: Coded 0-4 bases on nodule(s) with highest degree of suspicion. Negative screen is defined as categories 1 and 2; a positive screen is defined as categories 3 and 4. Category 3 and 4A nodules that are unchanged on interval CT should be coded as category 2, and individuals returned to screening in 12 months. Category 4X: Category 3 or 4 nodules with additional imaging findings that increase the suspicion of lung cancer, such as spiculation, GGN that doubles in size in 1 year, enlarged lymph notes, etc. Category Modifiers: S (significant finding unrelated to lung cancer) Electronically Signed: Carlos Soriano MD at 13:19 EDT ,
== END | disposition home or self-care (01) ==
LOC: OPBI 11:51
PROVIDERS: PCP Family Medicine; Visit Provider Internal Medicine Hematology & Oncology
DX: Z12.31 Encounter for screening mammogram for malignant neoplasm of breast (principal); Z80.3 Family history of malignant neoplasm of breast; Z12.2 Encounter for screening for malignant neoplasm of respiratory organs; Z87.891 Personal history of nicotine dependence
CPT/HCPCS: 71271; 77063; 77067

== ENCOUNTER → 2022-06-22 | Outpatient (CLI) | payer MEDICAID, SELFPAY ==
--- NOTE | 2022-06-22 08:46 | ART_ITS ---
Reason For Study: atherosclerosis with claudication Procedure A bilateral lower extremity continuous wave Doppler with analog waveform analysis and ankle brachial indexes. Brachial pressures taken 2X bilat. Left Segmental Pressures Left brachial= 148mmHg. Left posterior tibial artery = 147mmHg. Left dorsalis pedis artery = 133mmHg. Left digit = 121 mmHg. The left dorsalis pedis waveforms are biphasic. The left posterior tibial artery waveforms are biphasic. Right Segmental Pressures Right brachial= 157mmHg. Right posterior tibial artery = 187mmHg. Right dorsalis pedis artery = 182mmHg. Right digit = 178 mmHg. The right dorsalis pedis waveforms are triphasic. The right posterior tibial artery waveforms are triphasic. Indices The right ankle brachial index by the posterior tibial artery is 1.19. The right ankle brachial index by the dorsalis pedis is 1.16. The right digital-brachial index is 1.13. The left ankle brachial index by the dorsalis pedis is .85. The left ankle brachial index by the posterior tibial artery is .94. The left digital-brachial index is .77. VL/Ankle Brachial Index Interpretation Summary Right lower extremity with triphasic flow noted and an CARLOS 1.19 and a digit bra chial index of 1.13 showing no significant occlusive disease. Left lower extremity with biphasic fl ow and an CARLOS 0.94 and a digit brachial index of 0.77 also showing no significant occlusive diseas e. Ordering Physician: Tray Rubio Performed By: Fritz Crews RVT
--- NOTE | 2022-06-22 08:46 | ADU_ITS ---
Reason For Study: stricture of artery, atherosclerosis with claudication Right Velocities Left Velocities Ext. Iliac Artery, dist = 152.8 cm./sec. Ext Iliac Artery, dist = 54.4 cm./sec. Common Femoral Artery, mid = 124.2 cm./sec. Common Femoral Artery, mid = 42.1 cm./sec. Supf Femoral Artery, prox = 60.9 cm./sec. Supf. Femoral Artery, prox = 38.3 cm./sec. Supf Femoral Artery, mid = 48.7 cm./sec. Supf. Femoral Artery, mid = 34.5 cm./sec. Supf Femoral Artery, dist. = 53.5 cm./sec. Supf. Femoral Artery, dist = 23.2 cm./sec. Profunda Femoral Artery = 67.1 cm./sec. Profunda Femoral Artery = 27.9 cm./sec. Popliteal Artery, mid = 38.3 cm./sec. Popliteal Artery, mid = 21.3 cm./sec. Ant. Tibial Artery, prox = 48.7 cm./sec. Ant.Tibial Artery, prox = 23.2 cm./sec. Ant. Tibial Artery, mid = 58.1 cm./sec. Ant Tibial Artery, mid = 26.0 cm./sec. Ant. Tibial Artery, dist = 59.1 cm./sec. Ant. Tibial Artery, distal = 28.8 cm./sec. Post. Tibial Artery, prox = 50.6 cm./sec. Post. Tibial Artery, prox = 20.4 cm./sec. Post. Tibial Artery, mid = 42.1 cm./sec. Post Tibial Artery, mid = 21.3 cm./sec. Post. Tibial Artery, dist = 38.3 cm./sec. Post Tibial Artery, dist. = 18.5 cm./sec. Peroneal Artery, prox = 24.2 cm./sec. Peroneal Artery, prox = 16.6 cm./sec. Peroneal Artery, mid = 27.9 cm./sec. Peroneal Artery, mid = 14.7 cm./sec. Peroneal Artery,dist = 17.6 cm./sec. Peroneal Artery,dist. = 10.9 cm./sec. Procedure The exam was diagnostic. Exam performed in department. VL/US Art Duplex Bilat Lower Ext Interpretation Summary Bilateral lower extremities with no evidence of significant stenosis visualized . Ordering Physician: Tray Rubio Performed By: Fritz Crews RVT
--- NOTE | 2022-06-22 08:47 | ADUUE_ITS ---
Reason For Study: stricture of artery LEFT Left Subclavian velocity = 41.2 cm/sec. Left Axillary velocity = 73.8 cm/sec. Left Brachial velocity = 64.7 cm/sec. Left Radial velocity = 52.3 cm/sec. Left Ulnar velocity = 31.4 cm/sec. VL/US Art Duplex Unilat UP Extrem Interpretation Summary Left upper extremity with no stenosis visualized. Ordering Physician: Tray Rubio Performed By: Fritz Crews RVT
== END | disposition home or self-care (01) ==
LOC: CVS 08:44
PROVIDERS: PCP Family Medicine; Referring Provider Surgery Vascular Surgery; Visit Provider Surgery Vascular Surgery
DX: I77.1 Stricture of artery (principal); I70.213 Atherosclerosis of native arteries of extremities with intermittent claudication, bilateral legs; I10 Essential (primary) hypertension; F17.200 Nicotine dependence, unspecified, uncomplicated; M79.605 Pain in left leg
CPT/HCPCS: 93922; 93925; 93931

== ENCOUNTER 2022-10-12 12:11 | Day surgery (SDC) | payer MEDICAID, SELFPAY ==
[2022-10-12] VITALS (9 sets, daily range): BP systolic 84–116; BP diastolic 44–59; PULSE 61–69; RESP 16–18; TEMP 36.1–36.7; O2SAT 99–100; BMI 30.2
--- NOTE | 2022-10-12 12:41 | PCM.HP.BLA ---
History and Physical Date of Admission: 10/12/22 KARLI CALHOUN, is a 62 F who presents to the office today for Follow up. Karli established with this clinic through [facility] hospitalization. [facility] ED presentation 01.23.22 with GIB in the setting of baby aspirin (hgb13.5 on admission). Gastroenterology consulted next day with EGD performed same day with multiple oozing duodenal ulcers. She was discharged 01.24.22 (hgb 11.2 on discharge). Hematology Dr. Guerrier follows for leukocytosis, polycythemia rubra vera and thrombocytosis. She is being treated with hydroxyurea. EGD 01.24.22 noting non-bleeding gastric ulcer; multiple oozing duodenal ulcers, heater probe. 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 Reports Dr. Guerrier told her there continued to be blood in her stool and needed to follow up at this time. She does not see black/tarry or blood in her stools. Denies symptomatic anemia. Baby aspirin taken routinely, but not daily. ROS Const Constitutional: No anorexia, fatigue, fever(s), weight change or sleep problems Eyes Eyes: No change in vision ENT ENT: No abnormal hearing, difficulty swallowing, mouth lesions, tongue swelling or throat swelling Resp Respiratory: No cough or shortness of breath Cardio Cardiology: No chest pain at rest, chest pain with exertion, shortness of breath or dyspnea on exertion Gastro GI: No difficulty swallowing Genitourinary-Female: No difficulty urinating or burning urination Musc Musculoskeletal: No joint pain, joint swelling, muscle weakness or decreased muscle mass Skin Skin: No hair loss in leg, yellowing of the eye, itchy eyes, rash, skin ulcer or skin swelling Neuro Neurology: No abnormal hearing, abnormal movements, confusion, unsteady gait/balance or memory loss Psych Psychiatric: No anxiety, No confusion and No memory loss Endo Endocrine: No fatigue or weight change Aller/Imm Allergy/Immunologic: No itchy eyes, throat swelling or tongue swelling Dhruv/Lymp Hematologic/Lymphatic: No easy bleeding, easy bruising or enlarged lymph nodes Exam Const General: healthy appearing and not in acute distress HENMT Head: normocephalic and atraumatic Neck Neck: trachea midline, supple and no lymphadenopathy noted Resp Effort & Inspection: normal respiratory effort and symmetric chest movement Auscultation: Bilateral: Clear to Auscultation Cardio Rate: regular rate Rhythm: regular rhythm Heart Sounds: S1 normal, S2 normal and no murmurs Psych Affect: normal affect Speech and Movement: speech and movement normal Quality Reporting Tobacco Screening ([facility]) Smoking Status: Current every day smoker Assessment and Plan Assessment and Plan (1) History of GI bleed: ?Status:?Acute ?Plan: History of GI bleeding likely secondary to peptic ulcer disease.? She will need upper endoscopy to evaluate her upper GI tract.? She will also need a colonoscopy due to history of polycythemia vera in association with GI malignancies.? She was explained alternatives, risk and benefits infection, sepsis, perforation, need for emergent .? She will have an ASA of 3. ? ? ? Orders: Orders Colonoscopy 10/12/22 Z87.19 - Personal history of other diseases of the digestive system ? EGD 10/12/22 Z87.19 - Personal history of other diseases of the digestive system ? I have examined the patient and the H&P has been reviewed. There are no clinical changes since date of exam.
--- NOTE | 2022-10-12 13:15 | EGD_PTH ---
PATIENT: HILARIO CALHOUN LOC: EN U#:[id number] AGE/SX: 62/F ROOM: RE10/12/[address]: Dr. Amol Garrett DO : 1960 BED: DIS: 10/12/2022 SPEC #: [id number] RECD: 10/12/22 17:02 STATUS: LEXII SAAD #: [id number] JUAN DAVID: 10/12/22 13:[address]: Amol Garrett DEPT: SURGICAL PATHOLOGY RECD BY: Mireille Johnson ENTERED: 10/13/22 08:57 SP TYPE: EGD BIOPSY JANETH DR: Dr. Robin Venegas MD Tissues: A - Duodenum, NOS B - Sigmoid colon biopsy Procedures: Surgery Specimen Level IV HEADER OPERATION: [place] [place] PRE-OP DIAGNOSIS: History of GI bleed TISSUE SUBMITTED: A ? Duodenum biopsy, B ? Sigmoid biopsy MICROSCOPIC DIAGNOSIS A. Duodenum, biopsy: No pathologic change. B. Sigmoid colon, biopsy: No significant pathologic change. AM:lolita 10/14/2022 MICROSCOPIC DESCRIPTION Slides are reviewed. GROSS DESCRIPTION A - Received in fixative is one container labeled with the patient's name and designated duodenum biopsy. The specimen consists of one irregular fragment of light trejo soft tissue that measures 0.6 x 0.3 x 0.1 cm. The specimen is totally submitted in one cassette. B - Received in fixative is one container labeled with the patient's name and designated sigmoid biopsy. The specimen consists of two irregular fragments of light trejo soft tissue that in aggregate measure 0.7 x 0.3 x 0.1 cm. The specimen is totally submitted in one cassette. / AM:lolita 10/13/2022 TC:5 CPT: 30784 x2
--- NOTE | 2022-10-12 14:10 | OP.EGD_ITS ---
Patient Name: Karli Olivares Procedure Date: 10/12/2022 1:33 PM Date of : 1960 Age: 62 Procedure: Upper GI endoscopy Indications: Epigastric abdominal pain, Peptic ulcer Providers: Amol Garrett DO Referring MD: Rohit Venegas Medicines: Monitored Anesthesia Care Patient Profile: This is a 62 year old female. Refer to note in patient chart for documentation of history and physical. Patient has symptoms of chronic epigastric abdominal pain. Complications: No immediate complications. Procedure: Pre-Anesthesia Assessment: - Prior to the procedure, a History and Physical was performed, and patient medications and allergies were reviewed. The risks and benefits of the procedure and the sedation options and risks were discussed with the patient. All questions were answered and informed consent was obtained. Patient identification and proposed procedure were verified by the physician in the pre-procedure area. Mental Status Examination: alert and oriented. Airway Examination: normal oropharyngeal airway and neck mobility. Respiratory Examination: clear to auscultation. CV Examination: normal. Prophylactic Antibiotics: The patient does not require prophylactic antibiotics. Prior Anticoagulants: The patient has taken no previous anticoagulant or antiplatelet agents. After reviewing the risks and benefits, the patient was deemed in satisfactory condition to undergo the procedure. The anesthesia plan was to use monitored anesthesia care (MAC). Immediately prior to administration of medications, the patient was re-assessed for adequacy to receive sedatives. The heart rate, respiratory rate, oxygen saturations, blood pressure, adequacy of pulmonary ventilation, and response to care were monitored throughout the procedure. The physical status of the patient was re-assessed after the procedure. After obtaining informed consent, the endoscope was passed under direct vision. Throughout the procedure, the patient's blood pressure, pulse, and oxygen saturations were monitored continuously. The colonoscope was introduced through the mouth, and advanced to the second part of duodenum. The upper GI endoscopy was accomplished without difficulty. The patient tolerated the procedure well. Scope In: 1:46:54 PM Scope Out: 1:49:24 PM Total Procedure Duration Time 0 hours 2 minutes 30 seconds Findings: The examined esophagus was normal. No gross lesions were noted in the entire examined stomach. Localized mild inflammation characterized by congestion (edema) was found in the duodenal bulb. Biopsies were taken with a cold forceps for histology. Verification of patient identification for the specimen was done. Estimated blood loss was minimal. Impression: - Normal esophagus. - No gross lesions in the stomach. - Duodenitis. Biopsied. Recommendation: - Discharge patient to home. - Resume previous diet. - Continue present medications. - Await pathology results. Procedure Code(s): --- Professional --- 97623, Esophagogastroduodenoscopy, flexible, transoral; with biopsy, single or multiple CPT copyright 2017 [employer]. All rights reserved. The codes documented in this report are preliminary and upon customer account manager review may be revised to meet current compliance requirements. Amol Garrett DO 10/12/2022 2:10:01 PM This report has been signed electronically. Number of Addenda: 0 Note Initiated On: 10/12/2022 1:33 PM
--- NOTE | 2022-10-12 14:11 | OP.CCLET_ITS ---
10/12/2022 Rohit Venegas [address] [place] [address] Re : Upper GI endoscopy procedure for Karli Olivares Dear Dr. Venegas This procedure was performed on Wednesday, October 12, 2022. My impressions and recommendations are as follows: Impressions : - Normal esophagus. - No gross lesions in the stomach. - Duodenitis. Biopsied. Recommendations : - Discharge patient to home. - Resume previous diet. - Continue present medications. - Await pathology results. My findings are described in the full procedure note, which is enclosed. If I can be of further assistance, please feel free to contact me at . Sincerely, Amol Garrett, 10/12/2022 2:10:01 PM This report has been signed electronically.
--- NOTE | 2022-10-12 14:17 | OP.CCLET_ITS ---
10/12/2022 Rohit Venegas [address] [place] [address] Re : Colonoscopy procedure for Karli Olivares Dear Dr. Venegas This procedure was performed on Wednesday, October 12, 2022. My impressions and recommendations are as follows: Impressions : - Diverticulosis in the recto-sigmoid colon and in the sigmoid colon. - Patchy mild inflammation was found in the sigmoid colon secondary to colitis. Biopsied. - A single bleeding colonic angiodysplastic lesion. Treated with a heater probe. Recommendations : - Written discharge instructions were provided to the patient. - The signs and symptoms of potential delayed complications were discussed with the patient. - Patient has a contact number available for emergencies. - Return to normal activities tomorrow. - Resume previous diet. - Continue present medications. - Await pathology results. - Repeat colonoscopy in 5 years for surveillance. My findings are described in the full procedure note, which is enclosed. If I can be of further assistance, please feel free to contact me at . Sincerely, Amol Garrett, 10/12/2022 2:16:15 PM This report has been signed electronically.
--- NOTE | 2022-10-12 14:17 | OP.COLON_ITS ---
Patient Name: Karli Olivares Procedure Date: 10/12/2022 1:49 PM Date of : 1960 Age: 62 Procedure: Colonoscopy Indications: Iron deficiency anemia Providers: Amol Garrett DO Referring MD: Rohit Venegas Medicines: Propofol per Anesthesia Patient Profile: This is a 62 year old female. Refer to note in patient chart for documentation of history and physical. Patient has symptoms of chronic epigastric abdominal pain. Last Colonoscopy: date unknown. Unable to locate last colonoscopy report. Complications: No immediate complications. Procedure: Pre-Anesthesia Assessment: - Prior to the procedure, a History and Physical was performed, and patient medications and allergies were reviewed. The risks and benefits of the procedure and the sedation options and risks were discussed with the patient. All questions were answered and informed consent was obtained. Patient identification and proposed procedure were verified by the physician in the pre-procedure area. Mental Status Examination: alert and oriented. Airway Examination: normal oropharyngeal airway and neck mobility. Respiratory Examination: clear to auscultation. CV Examination: normal. Prophylactic Antibiotics: The patient does not require prophylactic antibiotics. Prior Anticoagulants: The patient has taken no previous anticoagulant or antiplatelet agents. After reviewing the risks and benefits, the patient was deemed in satisfactory condition to undergo the procedure. The anesthesia plan was to use monitored anesthesia care (MAC). Immediately prior to administration of medications, the patient was re-assessed for adequacy to receive sedatives. The heart rate, respiratory rate, oxygen saturations, blood pressure, adequacy of pulmonary ventilation, and response to care were monitored throughout the procedure. The physical status of the patient was re-assessed after the procedure. After I obtained informed consent, the scope was passed under direct vision. Throughout the procedure, the patient's blood pressure, pulse, and oxygen saturations were monitored continuously. The colonoscope was introduced through the anus and advanced to the terminal ileum. The colonoscopy was performed without difficulty. The patient tolerated the procedure well. The quality of the bowel preparation was good. Scope In: 1:51:40 PM Scope Withdrawal Time 0 hours 9 minutes 21 seconds Scope Out: 2:02:41 PM Total Procedure Duration Time 0 hours 11 minutes 1 second Findings: A few small-mouthed diverticula were found in the recto-sigmoid colon and sigmoid colon. Patchy mild inflammation characterized by erythema was found in the sigmoid colon. Biopsies were taken with a cold forceps for histology. Verification of patient identification for the specimen was done. Estimated blood loss was minimal. A single medium-sized localized angiodysplastic lesion with bleeding was found in the cecum. Coagulation for hemostasis using heater probe was successful. Impression: - Diverticulosis in the recto-sigmoid colon and in the sigmoid colon. - Patchy mild inflammation was found in the sigmoid colon secondary to colitis. Biopsied. - A single bleeding colonic angiodysplastic lesion. Treated with a heater probe. Recommendation: - Written discharge instructions were provided to the patient. - The signs and symptoms of potential delayed complications were discussed with the patient. - Patient has a contact number available for emergencies. - Return to normal activities tomorrow. - Resume previous diet. - Continue present medications. - Await pathology results. - Repeat colonoscopy in 5 years for surveillance. Procedure Code(s): --- Professional --- 67724, 59, Colonoscopy, flexible; with control of bleeding, any method 35283, Colonoscopy, flexible; with biopsy, single or multiple CPT copyright 2017 [employer]. All rights reserved. The codes documented in this report are preliminary and upon medical records coder review may be revised to meet current compliance requirements. Amol Garrett DO 10/12/2022 2:16:15 PM This report has been signed electronically. Number of Addenda: 0 Note Initiated On: 10/12/2022 1:49 PM
== END 2022-10-12 15:22 | disposition home or self-care (01) ==
LOC: EN 12:12 → AC 12:13
PROVIDERS: PCP Family Medicine; Referring Provider Family Medicine; Visit Provider Internal Medicine Gastroenterology
PROC: 0DJD8ZZ Inspection of Lower Intestinal Tract, Via Natural or Artificial Opening Endoscopic (ICD-10-PCS; CPT 45378; principal; 2022-10-12 13:10)
DX: K57.30 Diverticulosis of large intestine without perforation or abscess without bleeding (principal); K29.80 Duodenitis without bleeding; F17.200 Nicotine dependence, unspecified, uncomplicated; I10 Essential (primary) hypertension; Z79.899 Other long term (current) drug therapy
CPT/HCPCS: 45380; 43239; 45382; 88305; J7120; J2405

== ENCOUNTER → 2023-06-09 | Outpatient (CLI) | payer MEDICAID, SELFPAY ==
--- NOTE | 2023-06-09 13:30 | CT_ITS ---
STUDY: CTA ABDOMEN AND PELVIS WITH CONTRAST REASON FOR EXAM: Female, 62 years old. STRICTURE ARTERY, ATHEROSCLEROSIS BLE RADIATION DOSAGE (If Supplied By Facility): CTDIvol = ( 22.23 ) mGy, DLP = ( 863.90 ) mGycm TECHNIQUE: Transaxial images were obtained from the dome of the diaphragm to the symphysis pubis without oral contrast. IV 100mL Isovue-300 was administered. Sagittal and coronal images were reconstructed. 3-D images were reconstructed. Individualized dose optimization techniques were used for this CT. COMPARISON: Comparison is made with prior study January 24, 2022. FINDINGS: The visualized lung bases are unremarkable. The visualized portions of the heart are within normal limits. There is decreased attenuation of the liver consistent with steatosis. Normal gallbladder and extrahepatic biliary system. Normal spleen. Normal pancreas. Normal bilateral adrenal glands. Normal right kidney. Normal left kidney. Normal visualized stomach. Normal small intestine. There are multiple colonic diverticula consistent with diverticulosis. The appendix is visualized and appears normal. There is scattered atherosclerotic calcification of the abdominal aorta, without a demonstrated aneurysm. Mild mural thrombus of the aorta. Once again, there is a tight stenosis in the distal portion of the left common iliac artery. Tight stenosis in the proximal portion of the right common iliac artery due to soft plaque. Tight stenosis at the origin of the right renal artery. Normal inferior vena cava. Normal retroperitoneum. Normal urinary bladder. Normal abdominal wall. There are diffuse degenerative changes of the visualized lumbar spine. Dextroscoliosis. CT/CTA Abd/Pelvis W/WO Contrast IMPRESSION: Tight stenosis in the proximal portion of the right common iliac artery and midportion of the left common iliac artery. Tight stenosis at the origin of the right renal artery. Sigmoid diverticulosis. Electronically Signed: Carlos Soriano MD at 14:40 EDT ,
[2023-06-09 13:49] LABS: CREATININE FINGERSTICK 1.2 mg/dL (0.55-1.02)
== END | disposition home or self-care (01) ==
LOC: CT 13:15
PROVIDERS: PCP Family Medicine; Referring Provider Surgery Vascular Surgery; Visit Provider Surgery Vascular Surgery
DX: I77.1 Stricture of artery (principal); I70.213 Atherosclerosis of native arteries of extremities with intermittent claudication, bilateral legs; F17.200 Nicotine dependence, unspecified, uncomplicated; E78.5 Hyperlipidemia, unspecified; I10 Essential (primary) hypertension; M79.606 Pain in leg, unspecified
CPT/HCPCS: 74174; Q9967

== ENCOUNTER 2024-01-14 13:47 | Emergency (ER) | payer MEDICAID, SELFPAY ==
[2024-01-14 13:49] VITALS: BP 143/95; PULSE 71; RESP 19; TEMP 36.6; O2SAT 97; BMI 32.2
--- NOTE | 2024-01-14 13:57 | EKG12_ITS ---
Test Reason : CP Blood Pressure : / mmHG Vent. Rate : 070 BPM Atrial Rate : 070 BPM P-R Int : 142 ms QRS Dur : 092 ms QT Int : 418 ms P-R-T Axes : 055 047 015 degrees QTc Int : 451 ms Normal sinus rhythm Normal ECG Confirmed by Woody Brito ([id number]), managing editor XAVI SHANKAR ([id number]) on 01/16/2024 10:27:57 AM Referred By: ROSE MARY/TOMMY Confirmed By:Woody Brito
[2024-01-14 14:05] LABS: Absolute Lymphocyte Count 2.31 X10^3/uL (0.83-4.51); Absolute Neutrophil Count 9.8 X10^3/uL (2.0-7.7); Basophil# 0.05 X10^3/uL; Basophil% 0.4 % (0-1); Eosinophil# 0.07 X10^3/uL; Eosinophils% 0.5 % (0-5); Hematocrit 43.7 % (37-47); Hemoglobin 13.9 g/dL (12.0-15.0); Lymphocyte # 2.31 X10^3/ul (0.83-4.51); Lymphocyte % 17.6 % (19-41); Mean Corp Hgb Conc 31.8 g/dL (32-36); Mean Corpuscular Hgb 32.9 pg (27.0-32.0); Mean Corpuscular Volume 103.3 fL (81-99); Mean Platelet Vol. 9.1 fl (6.2-12.0); Monocyte# 0.79 X10^3/uL; NRBC Flagged by Analyzer 0 % (0-5); Neutrophil # 9.78 X10^3/uL (2.7-7.7); Neutrophil % 74.6 % (47-70); Platelet Count 422 K/mm3 (150-450); RBC Distribution Width CV 13.8 % (11.6-14.6); RBC Distribution Width SD 51.6 fl (35.1-43.9); Red Blood Count 4.23 M/mm3 (4.2-5.4); White Blood Count 13.1 K/mm3 (4.4-11.0)
--- NOTE | 2024-01-14 14:07 | RAD_ITS ---
STUDY: X-RAY CHEST REASON FOR EXAM: Female, 63 years old. chest pain TECHNIQUE: Single AP portable view of the chest. COMPARISON: December 17, 2011 FINDINGS: The lungs are clear and expanded. There is no demonstrated pleural abnormality. Normal size heart. Normal mediastinum and nimco. Normal visualized pulmonary arteries. There is atherosclerotic calcification of the aortic arch with tortuosity. There are diffuse degenerative changes of the visualized thoracic spine. Normal visualized ribs, clavicles, and shoulders. There is no demonstrated abnormality of the visualized soft tissue structures of the upper abdomen. RAD/Chest 1 View (Portable) IMPRESSION: Degenerative changes, as described above. No demonstrated acute cardiopulmonary process. Electronically Signed: Delfino Sanchez MD at 14:49 EST ,
--- NOTE | 2024-01-14 14:12 | EX.ED.DYSGE1 ---
HPI <Edyta Lopez RN - Last Filed: 01/14/24 18:06> History of Present Illness Chief Complaint: Chest Pain Informant: patient Onset/Context/Timing Onset: Yesterday Timing: Intermittent Quality: Pressure Location: Upper chest Current Severity: 5/10 Maximum Severity: 6/10 Worsened by: Nothing Relieved by: Nothing Associated Symptoms Associated Symptoms: Shortness of breath Narrative Narrative: Patient with a past medical history of hypertension, smoking, and polycythemia rubra vera presents to the ED for 2 hours of chest pain associated with deep breathing. Patient reports when she takes a deep breath she has pressure radiating from her neck across the top of her chest and to her right shoulder. She denies diaphoresis, lightheaded nests or dizziness, and nausea. She also reports shortness of breath with activity beginning 2 days ago. She reports a chronic cough with thick green and white sputum occurring nearly every morning. She does have a history of hypertension. However she quit taking her medications over a year ago as she did not want to go see the doctor every 3 months for monitoring and refills. She has also not seen a primary care physician in approximately 2 years. She does see [facility] for hematology who she last saw on 01/11/2024. Patient does report she continues to take her Plavix and hydroxyurea. She reports she had. Stents placed in her bilateral iliac arteries in August 20[address] at [place] by Dr. Rubio. She has never had a stress test or heart cath. Patient reports she is a pack per day smoker for the past 50 years. She denies any family history of strokes or coronary artery disease. Prior similar symptoms: No Recent Illness/Hospitalization: No PFSH <Edyta Lopez RN - Last Filed: 01/14/24 18:06> PFSH Medical History Arthritis Back pain Depression Encounter for screening for malignant neoplasm of lung in current smoker with 30 pack year history or greater History of GI bleed History of pain when walking HTN (hypertension) Leg cramps PAD (peripheral artery disease) Polycythemia rubra vera Shortness of breath on exertion Smoker Tobacco use disorder, continuous Wears glasses Home Medications clopidogrel 75 mg tablet (Plavix) 75 mg PO DAILY 09/28/23 [History Last Taken Unknown] hydroxyurea 500 mg capsule 500 mg PO DAILY 09/28/23 [History Last Taken Unknown] Allergy/AdvReac Type Severity Reaction Status Date / Time amlodipine AdvReac cough Verified 01/14/24 13:55 hydrochlorothiazide AdvReac fatigue Verified 01/14/24 13:55 lisinopril AdvReac cough Verified 01/14/24 13:55 Family History Mother Breast cancer Father Brain tumor Surgical History History of coronary artery stent placement Hx of esophagogastroduodenoscopy Social History household members: none housing: house Smoking Status: Current every day smoker tobacco type: cigarettes Tobacco: How many years used: 48 substance use type: does not use ROS <Edyta Lopez RN - Last Filed: 01/14/24 18:06> ROS ED Constitutional Constitutional ED: Denies chills, fever(s) or sweats Eyes Eyes: Denies change in vision Cardiovascular Cardiovascular: Reports chest pain; Denies orthopnea, palpitations, paroxysmal nocturnal dyspnea or racing heartbeat Respiratory/Chest Respiratory/Chest: Reports cough, dyspnea and dyspnea on exertion; Denies orthopnea or paroxysmal nocturnal dyspnea Gastrointestinal Gastrointestinal: Denies abdominal pain, constipation, diarrhea, melena, nausea or vomiting Genitourinary Genitourinary ED: Denies dysuria, hematuria or urinary frequency Musculoskeletal Musculoskeletal: Denies arthralgias or myalgias Integumentary Denies rash Neurologic Neurologic: Denies headache(s), paresthesias or weakness Psychiatric Psychiatric: Reports anxiety EXAM <Edyta Lopez RN - Last Filed: 01/14/24 18:06> Physical Exam Narrative Exam Narrative: Alert, slightly anxious, well-kept female. Const Vital Signs: 01/14/24 13:49 01/14/24 13:58 01/14/24 15:16 Temperature 97.8 F Temperature Source Oral Pulse Rate 71 70 Respiratory Rate 19 H 16 Blood Pressure 143/95 H 143/95 H Blood Pressure Mean 111 111 Pulse Ox 97 98 Oxygen Delivery Method Room Air Nasal Cannula 01/14/24 17:18 01/14/24 18:01 Temperature 97.0 F L Temperature Source Pulse Rate 76 871 H Respiratory Rate 16 6 L Blood Pressure 144/90 H 149/92 H Blood Pressure Mean 108 111 Pulse Ox 99 99 Oxygen Delivery Method Room Air Positive well nourished and well developed General Appearance ED: well developed and NAD HEENT Reports moist mucous membranes Eyes PERRL and EOMs intact bilaterally Neck no lymphadenopathy, supple and no JVD Chest Wall inspection of chest normal and palpation of chest normal Resp normal respiratory effort and clear to auscultation bilaterally Auscultation: Negative for rales, rhonchi or wheezes Cardio regular rate, regular rhythm, S1 normal heart sound and S2 normal heart sound GI normal to inspection, nondistended, normoactive bowel sounds and non-tender Auscultation: normoactive bowel sounds Palpation: soft Extremity normal to inspection General Extremety ED: Negative for edema or tenderness General Extremity: Negative for edema Neuro oriented x3 Sensorium / Orientation: alert Motor Exam: strength 5/5 throughout Psych mental status grossly normal Skin no rashes or lesions noted, no wounds and skin turgor normal <Dr. Giancarlo Saucedo MD - Last Filed: 01/14/24 17:53> Physical Exam Const Vital Signs: 01/14/24 13:49 01/14/24 13:58 01/14/24 15:16 Temperature 97.8 F Temperature Source Oral Pulse Rate 71 70 Respiratory Rate 19 H 16 Blood Pressure 143/95 H 143/95 H Blood Pressure Mean 111 111 Pulse Ox 97 98 Oxygen Delivery Method Room Air Nasal Cannula 01/14/24 17:18 01/14/24 18:01 Temperature 97.0 F L Temperature Source Pulse Rate 76 871 H Respiratory Rate 16 6 L Blood Pressure 144/90 H 149/92 H Blood Pressure Mean 108 111 Pulse Ox 99 99 Oxygen Delivery Method Room Air MDM <Edyta Lopez RN - Last Filed: 01/14/24 18:06> [facility] MDM Narrative Medical decision making narrative: Patient placed on equipment monitor phototypesetting. IV line initiated. Labwork obtained to evaluate for leukocytosis, anemia, and electrolyte derangement. Chest x-ray obtained to evaluate for acute lung pathology, cardiac size, or mediastinal abnormality. History & Record Review Discussion w/independent historian: Patient Lab Data Labs: Laboratory Results - last 24 hr 01/14/24 13:55 WBC 13.1 H RBC 4.23 Hgb 13.9 Hct 43.7 MCV 103.3 H MCH 32.9 H MCHC 31.8 L RDW Std Deviation 51.6 H RDW Coeff of Yfn 13.8 Plt Count 422 MPV 9.1 Immature Gran % (Auto) 0.900 Neut % (Auto) 74.6 H Lymph % (Auto) 17.6 L Lyman % (Auto) 6.0 Eos % (Auto) 0.5 Baso % (Auto) 0.4 Absolute Neuts (auto) 9.8 H Absolute Lymphs (auto) 2.31 Nucleated RBC % 0 D-Dimer Quant (PE/DVT) 0.76 H* Sodium 136 Potassium 3.5 Chloride 107 Carbon Dioxide 25.0 Anion Gap 4 L BUN 16 Creatinine 0.90 Estim Creat Clear Calc 57.08 Est GFR (MDRD) Af Amer 81 Est GFR (MDRD) Non-Af 67 BUN/Creatinine Ratio 17.8 Glucose 110 H Calcium 9.5 Troponin I High Sens 4 Radiography Diagnostic Testing: Clinical Impression(s) from Imaging Studies Chest X-Ray 01/14/24 14:07 IMPRESSION: Degenerative changes, as described above. No demonstrated acute cardiopulmonary process. Electronically Signed: Delfino Sanchez MD at 14:49 EST , Chest CTA 01/14/24 15:46 IMPRESSION: Normal CTA chest examination, without a demonstrated pulmonary embolism or arterial dissection. Electronically Signed: Hadley Moya MD at 17:46 EST , Differential Diagnosis Chest pain/SOB: pulmonary embolism, ACS, pneumonia, CHF and COPD Management Discussion w/another healthcare provider: Other (Dr Saucedo, ED provider) Treatment and Re-Evaluation :: Lab work and imaging evaluated. Patient with slightly elevated WBC at 13.1. Hemoglobin 13.9. Platelets 422. Neutrophils 74.6. Chemistries unremarkable except for slightly elevated glucose at 110. High-sensitivity troponin negative at 4. Chest x-ray shows no acute cardiopulmonary process. D-dimer is elevated at 0.76. CTA chest negative for PE. Upon reevaluation patient awake and alert in bed. Lab work and imaging explained to patient. Patient to be discharged home with follow-up with PCP. <Dr. Giancarlo Saucedo MD - Last Filed: 01/14/24 17:53> [facility] Narrative Medical decision making narrative: Patient placed on equipment monitor phototypesetting. IV line initiated. Labwork obtained to evaluate for leukocytosis, anemia, and electrolyte derangement. Chest x-ray obtained to evaluate for acute lung pathology, cardiac size, or mediastinal abnormality. I have personally performed a face to face assessment of the patient and have reviewed the RICK Note. I performed a substantive portion of the visit including all aspects of the following. My teague findings include: History is 63-year-old female no cardiac history presents with atypical chest pain. Not exertional. No history of DVT or PE. No recent travel or surgery. Reportedly has some history of some type of blood cancer. States the pain is worse sometimes with movement. Sometimes with deep breathing. She does not feel short of breath. It is nonexertional. No leg pain or swelling. Pain does not radiate to her back. No nausea or diaphoresis. Exam is [well-appearing 63-year-old female. Vital signs stable afebrile. Pulse ox 97% on room air no hypoxia. H EENT exam unremarkable. Neck nontender no JVD. Lungs clear to auscultation bilaterally. Heart regular rhythm rate about 70 no murmur. Chest wall she has some mild reproducible chest wall discomfort and it is not consistent. There is no redness or discoloration. No rash or bruising. No bony deformity or crepitance. Abdomen soft nontender normal bowel sounds no peritoneal signs. Moving all 4 extremities. Calves are nontender without edema or cords. Normal heat treat technician strength. Equal symmetrical radial pulses. Back nontender. Neurologically she is awake and alert with no focal motor deficits.] Medical Decision Making [63-year-old atypical chest pain. Cardiac workup with a D-dimer.] Other additions or changes: [None] Repeat exam patient doing well at 5:50 PM. CTA of her chest was normal. I went over all of her test results with her. She is comfortable being discharged home with outpatient follow-up. Return if worse. Lab Data Attestation: I reviewed the patient's lab results. Lab results narrative: CBC white count 13.1. H&H 13 and 43. Platelets 422. Chemistries unremarkable gap of 4 normal BUN and creatinine. Troponin 4. Chest x-ray unremarkable. EKG unremarkable. Labs: Laboratory Results - last 24 hr 01/14/24 13:55 WBC 13.1 H RBC 4.23 Hgb 13.9 Hct 43.7 MCV 103.3 H MCH 32.9 H MCHC 31.8 L RDW Std Deviation 51.6 H RDW Coeff of Yfn 13.8 Plt Count 422 MPV 9.1 Immature Gran % (Auto) 0.900 Neut % (Auto) 74.6 H Lymph % (Auto) 17.6 L Lyman % (Auto) 6.0 Eos % (Auto) 0.5 Baso % (Auto) 0.4 Absolute Neuts (auto) 9.8 H Absolute Lymphs (auto) 2.31 Nucleated RBC % 0 D-Dimer Quant (PE/DVT) 0.76 H* Sodium 136 Potassium 3.5 Chloride 107 Carbon Dioxide 25.0 Anion Gap 4 L BUN 16 Creatinine 0.90 Estim Creat Clear Calc 57.08 Est GFR (MDRD) Af Amer 81 Est GFR (MDRD) Non-Af 67 BUN/Creatinine Ratio 17.8 Glucose 110 H Calcium 9.5 Troponin I High Sens 4 Radiography Chest X-Ray - ED: 1 View, Read by ED Physician, Normal, Heart, Lungs, Mediastinum, Bony Structures, No Acute Disease and Chronic Changes Diagnostic Testing: Clinical Impression(s) from Imaging Studies Chest X-Ray 01/14/24 14:07 IMPRESSION: Degenerative changes, as described above. No demonstrated acute cardiopulmonary process. Electronically Signed: Delfino Sanchez MD at 14:49 EST , Chest CTA 01/14/24 15:46 IMPRESSION: Normal CTA chest examination, without a demonstrated pulmonary embolism or arterial dissection. Electronically Signed: Hadley Moya MD at 17:46 EST , Chest x-ray, portable, single view interpreted by myself the radiologist shows chronic changes no acute process. Normal cardiac silhouette. Normal lung chamberlain. Normal mediastinum. Rhythm Strip Rhythm Strip: Sinus Rhythm Rate: 70 Ectopy: None EKG Initial EKG: Attestation: I personally reviewed and interpreted this EKG as follows: Interpretation: Sinus Rhythm and No Acute Injury Pattern Comments: Normal sinus rhythm rate of 70 no acute signs of [place] or ischemia. No S1Q3T3. No ST depression or T wave inversions. Discharge Plan Triage Chief Complaint: Chest Pain ED Provider: Giancarlo Saucedo Dx/Rx/DC Orders Clinical Impression: Chest pain Instructions: ED Chest Pain, Uncertain Cause Prescriptions: No Action hydroxyurea 500 mg capsule 500 mg PO DAILY Rx Instructions: Except Sundays, Adjust dose as directed clopidogrel [Plavix] 75 mg tablet 75 mg PO DAILY Primary Care Provider: Rohit Venegas Referrals: Rohit Venegas MD [Primary Care Provider] - 3-5 Days if not improving Activity Restrictions/Additional Instructions: Your test today were unremarkable. Labs were normal. The CAT scan of your chest showed no blood clot. No specific cause for your chest pain today. Follow-up your primary care physician as needed. Disposition Disposition: Home, Self Care Discharge Date/Time: 01/14/24 18:02
--- OUTSIDE RECORDS SUMMARY | 2024-01-14 14:18 | XMS RPT_ITS | CCD ---
Author Name Unknown Address [address] [place] [address] Organization [facility] Care Team Providers Care Regional Engineer Name Role Phone MATA HANNAH, REJI Oliveira Attending Unavailable PHYSICIAN, NONE Primary Care Unavailable Results Test Name Value Interpretation Reference Range Facil ity Encounters Encounter Date Encounter Type Care Provider Facility Start: 08-26-2023 End: 08-26-2023 ambulatory REJI AUGUST MD Facility:A Payers Date Payer Category Payer Unknown [id number] 1960 Unknown [id number] Summary Purpose Family History No Family History Records FoundNo Family History Records Found Advance Directives No Advanced Directives Records FoundNo Advanced Directives Records Found Additional Source Comments INFORMATION SOURCE (unrecogn ized section and content) DATE CREATED AUTHOR AUTHOR'S KIERA AYALA 12/31/2023 [facility] [place] [facility] [place] FOR RECORDS PERTAINING TO PATIENTS WHO ARE OR HAVE BEEN ENROLLED IN A CHEMICAL DEPENDENCY/SUBSTANCEABUSE PROGRAM, SOME INFORMATION MAY BE OMITTED. This clinical summary was aggregated from multiple sources. Caution should be exercised in using it in the provision of clinical care. This summary normalizes information from multiple sources, and as a consequence, information in this document may materially change the coding, format and clinical context of patient data. In addition, data may be omitted in some cases. CLINICAL DECISIONS SHOULD BE BASED ON THE PRIMARY CLINICAL RECORDS. [facility]. provides no warranty or guarantee of the accuracy or completeness of information in this document.
[2024-01-14 14:22] LABS: Anion Gap 4 (5-15); BUN 16 mg/dL (7-18); BUN/Creat Ratio 17.8 RATIO (10-20); Calcium,Total 9.5 mg/dL (8.5-10.1); Chloride 107 mmol/L (98-107); EST Glomerular Filtration Rate 67 mL/min (>60); Est Glom Filt Rate - Afr Amer 81 mL/min (>60); Estimated Creatinine Clearance 57.08 ml/min; Glucose 110 mg/dL (74-106); Potassium 3.5 mmol/L (3.5-5.1); Sodium Level 136 mmol/L (136-145); Troponin-I HS 4 pg/mL (3.0-54.0)
[2024-01-14 15:16] VITALS: BP 143/95; PULSE 70; RESP 16; O2SAT 98
[2024-01-14 15:30] LABS: D-Dimer Quantitative (DVT/PE) 0.76 FEU/ug/m (0.27-0.49)
--- NOTE | 2024-01-14 15:46 | CT_ITS ---
STUDY: CTA CHEST REASON FOR EXAM: Female, 63 years old. cp and elevated d-dimer RADIATION DOSAGE (If Supplied By Facility): CTDIvol = ( 12.55 ) mGy, DLP = ( 328.95 ) mGycm TECHNIQUE: The examination was performed with the intravenous administration of IV 75mL Isovue-370. Post-processing of the angiographic images was performed, with multiplanar reformation and 3D reconstruction. Individualized dose optimization techniques were used for this CT. COMPARISON: 06/01/2022, chest x-ray earlier today FINDINGS: Normal enhancement of the main pulmonary artery and right and left pulmonary arteries. Normal enhancement of the bilateral peripheral pulmonary arteries. There is no demonstrated pulmonary embolism. Normal thoracic aorta and visualized great vessels. There is no demonstrated aortic dissection. Normal heart and pericardium. Normal mediastinum. Normal hilar regions. Normal visualized trachea and bronchi. The lungs are well expanded. Normal pulmonary parenchyma. Normal pleura. Normal chest wall structures. Mild S-shaped scoliosis of the thoracic spine. Normal visualized upper abdomen. CT/CTA Chest W/WO Contrast IMPRESSION: Normal CTA chest examination, without a demonstrated pulmonary embolism or arterial dissection. Electronically Signed: Hadley Moya MD at 17:46 EST ,
[2024-01-14 17:18] VITALS: BP 144/90; PULSE 76; RESP 16; O2SAT 99
[2024-01-14 18:01] VITALS: BP 149/92; PULSE 871; RESP 6; TEMP 36.1; O2SAT 99
== END 2024-01-14 18:02 | disposition home or self-care (01) ==
PROVIDERS: Emergency Provider Emergency Medicine; PCP Family Medicine; Visit Provider Emergency Medicine
DX: R07.9 Chest pain, unspecified (principal); D45 Polycythemia vera; R06.02 Shortness of breath; F17.210 Nicotine dependence, cigarettes, uncomplicated; I10 Essential (primary) hypertension; F41.9 Anxiety disorder, unspecified; Z95.5 Presence of coronary angioplasty implant and graft; R05.3 Chronic cough
CPT/HCPCS: 71045; 71275; 80048; 84484; 85025; 85379; 93005; 99284; Q9967; A4216

== ENCOUNTER → 2024-06-26 | Outpatient (CLI) | payer MEDICAID, SELFPAY ==
--- NOTE | 2024-06-26 08:52 | AAVD_ITS ---
Reason For Study: Atherosclerosis Aorta Measurements Aorta Doppler Measurements Proximal aorta measures2.27 x 2.25cm. in cross- Peak systolic flow velocities within the proximal sectional axis. aorta measure 65.1 cm/sec. Proximal aorta measures2.27cm. in longitudinal Peak systolic flow velocities within the mid aorta axis. measure 72.3 cm/sec. Mid aorta measures1.73 x 1.76cm. in cross- Peak systolic flow velocities within the distal sectional axis. aorta measure 71.1 cm/sec. Mid aorta measures1.73cm. in longitudinal axis. Distal aorta measures1.45 x 1.49cm. in cross- sectional axis. Distal aorta measures1.46cm. in longitudinal axis. Left Iliac Artery Left iliac artery measures 0.66 x 0.68 cm. in the cross-sectional axis. Left iliac artery measures 0.71 cm. in the longitudinal axis. Peak systolic velocity in the left iliac artery measures 158.1 cm/sec. Stent noted in the Lt GISELLE. Right Iliac Artery Right iliac artery measures 0.61 x 0.59 cm. in the cross-sectional axis. Right iliac artery measures 0.61 cm. in the longitudinal axis. Peak systolic velocity in the right iliac artery measures 232.5 cm/sec. Stent noted in the Rt GISELLE. VL/Abd Aortic/IVC Duplex scan Interpretation Summary No aorta iliac aneurysm or stenosis. Mild right GISELLE stenosis. Ordering Physician: Tray Rubio Referring Physician: Robin Venegas MD Performed By: Diane Zelaya RVT
--- NOTE | 2024-06-26 08:52 | ART_ITS ---
Reason For Study: Atherosclerosis Procedure A bilateral lower extremity continuous wave Doppler with analog waveform analysis and ankle brachial indexes. Left Segmental Pressures Left brachial= 121mmHg. Left posterior tibial artery = 169mmHg. Left dorsalis pedis artery = 157mmHg. Left digit = 151 mmHg. The left dorsalis pedis waveforms are triphasic. The left posterior tibial artery waveforms are triphasic. Right Segmental Pressures Right brachial= 135mmHg. Right posterior tibial artery = 162mmHg. Right dorsalis pedis artery = 161mmHg. Right digit = 157 mmHg. The right dorsalis pedis waveforms are triphasic. The right posterior tibial artery waveforms are triphasic. Indices The right ankle brachial index by the dorsalis pedis is 1.19. The right ankle brachial index by the posterior tibial artery is 1.20. The right digital-brachial index is 1.16. The left ankle brachial index by the dorsalis pedis is 1.16. The left ankle brachial index by the posterior tibial artery is 1.25. The left digital-brachial index is 1.12. VL/Ankle Brachial Index Interpretation Summary Resting ankle-brachial indices appear bilaterally normal. Ordering Physician: Tray Rubio Referring Physician: Robin Venegas MD Performed By: Diane Zelaya RVT
== END | disposition home or self-care (01) ==
LOC: CVS 08:51
PROVIDERS: PCP Family Medicine; Referring Provider Surgery Vascular Surgery; Visit Provider Surgery Vascular Surgery
DX: I77.1 Stricture of artery (principal); I70.213 Atherosclerosis of native arteries of extremities with intermittent claudication, bilateral legs; I10 Essential (primary) hypertension; F17.200 Nicotine dependence, unspecified, uncomplicated
CPT/HCPCS: 93922; 93978